=== PATIENT | female | born 1960 | race Caucasian/White ===

== ENCOUNTER → 2024-09-01 | Outpatient (CLI) | payer MEDICARE, MEDICAID, SELFPAY ==
[2024-09-01 13:24] LABS: Basophils # (Auto) 0.1 Thou/mm3 (0.0-0.2); Basophils % (Auto) 0 % (0-2.5); Eosinophils # (Auto) 0.3 Thou/mm3 (0.0-0.5); Eosinophils % (Auto) 2 % (0-10); Hematocrit 39.3 % (36.0-46.0); Hemoglobin 12.8 g/dL (12.0-16.0); Immature Granulocytes % (Auto) 0 % (0-0); Immature Granulocytes Auto 0.07 Thou/mm3 (0.00-0.00); Lymphocytes # (Auto) 3.7 Thou/mm3 (1.0-4.8); Lymphocytes % (Auto) 23 % (10-50); Mean Corpuscular HGB Conc 32.6 g/dl (31.0-37.0); Mean Corpuscular Hemoglobin 28.8 pg (25.0-35.0); Mean Corpuscular Volume 89 fL (80-100); Monocytes # (Auto) 1.8 Thou/mm3 (0.0-0.8); Monocytes % (Auto) 11 % (0-12); Neutrophils # (Auto) 10.3 Thou/mm3 (1.8-7.7); Neutrophils % (Auto) 64 % (37-80); Nucleated Red Blood Cell % 0 /100 WBC (0); Platelet Count 180 Thou/mm3 (140-440); RDW Standard Deviation 43.2 fL (36.4-46.3); Red Blood Count 4.44 Miln/mm3 (4.00-5.20); White Blood Count 16.2 Thou/mm3 (3.6-11.0)
[2024-09-01 15:35] LABS: Alanine Aminotransferase 8 U/L (10-49); Albumin, Serum 4.2 gm/dL (3.4-4.8); Albumin/Globulin Ratio 1.6 (1.2-2.2); Alkaline Phosphatase 62 U/L (46-116); Anion Gap 9 (7-16); Aspartate Amino Transferase 16 U/L (0-34); BUN/Creatinine Ratio 19 Ratio (12-20); Bilirubin,Direct 0.2 mg/dL (0.0-0.3); Bilirubin,Total 0.6 mg/dL (0.3-1.2); Blood Urea Nitrogen 19 mg/dL (9-23); Calcium 9.9 mg/dL (8.3-10.6); Calcium (Corrected) 9.9 mg/dL (8.5-10.1); Carbon Dioxide 29.6 mMol/L (20.0-31.0); Cardiac Risk Estimate 3.2 RATIO (3.7-5.6); Chloride 100 mMol/L (98-107); Cholesterol 165 mg/dL (132-200); Free T3 2.7 pg/mL (2.3-4.2); Free T4 (Free Thyroxine) 1.04 ng/dL (0.89-1.76); Globulin 2.6 gm/dL (2.3-3.5); Glucose 85 mg/dL (74-106); HDL Cholesterol 51 mg/dL (40-60); LDL Cholesterol,Calculated 88 mg/dL (0-130); Osmolality,Calculated 278 (275-295); Sodium 139 mMol/L (136-145); Thyroid Stimulating Hormone 1.67 uIU/mL (0.55-4.78); Total Protein 6.8 gm/dL (5.7-8.2); Triglycerides 131 mg/dL (30-150); eGFR > 60 See Note
[2024-09-01 15:45] LABS: Vitamin B12 623 pg/mL (211-911); Vitamin D 25 Hydroxy Total 45.9 ng/mL (7.3-40.2)
[2024-09-13 07:08] LABS: Valporic Acid (Depak)* 46.1 mg/L (50.0-100.0)
== END | disposition home or self-care (01) ==
LOC: SLDO 13:02
PROVIDERS: Referring Provider Family Medicine; Visit Provider Family Medicine
DX: F79 Unspecified intellectual disabilities (principal)
CPT/HCPCS: 36415; 80053; 80061; 80076; 80164; 82306; 82607; 84439; 84443; 84481; 85025

== ENCOUNTER → 2025-01-02 | Outpatient (CLI) | payer MEDICARE, MEDICAID, SELFPAY ==
--- NOTE | 2025-01-02 13:35 | XR_ITS ---
Examination: Bone densitometry Date and time of exam:January 02, 2025 1336 hours INDICATIONS: Post menopausal Technique: Lumbar spine and hip total bone mineralization values of an calculated. Peak reference and age match control results have been displayed. Findings: Lumbar spine total bone mineralization is1.219 gm/cm2. This is 1.6 standard deviations above peak reference. This is 3.4 standard deviations above age-matched controls. Hip total bone mineralization is 0.845 gm/cm2 This is 0.8 standard deviations below peak reference. This is 0.5 standard deviations above age-matched controls Impression: There is normal mineralization based on lumbar spine measurements. There is osteopenia based on hip measurements Lumbar mineralization is increase 7.3% compared with April 25, 2019 Hip mineralization is increase 13.3% compared with April 25, 2019
== END | disposition home or self-care (01) ==
LOC: CDIM 13:05
PROVIDERS: PCP Family Medicine; Referring Provider Family Medicine; Visit Provider Family Medicine
DX: M85.88 Other specified disorders of bone density and structure, other site (principal)
CPT/HCPCS: 77080

== ENCOUNTER → 2025-04-04 | Outpatient (CLI) | payer MEDICARE, MEDICAID, SELFPAY ==
[2025-04-04 16:37] LABS: Basophils # (Auto) 0.1 Thou/mm3 (0.0-0.2); Basophils % (Auto) 1 % (0-2.5); Eosinophils # (Auto) 0.3 Thou/mm3 (0.0-0.5); Eosinophils % (Auto) 3 % (0-10); Hematocrit 39.2 % (36.0-46.0); Hemoglobin 12.5 g/dL (12.0-16.0); Immature Granulocytes % (Auto) 1 % (0-0); Immature Granulocytes Auto 0.06 Thou/mm3 (0.00-0.00); Lymphocytes # (Auto) 3.2 Thou/mm3 (1.0-4.8); Lymphocytes % (Auto) 33 % (10-50); Mean Corpuscular HGB Conc 31.9 g/dl (31.0-37.0); Mean Corpuscular Hemoglobin 28.6 pg (25.0-35.0); Mean Corpuscular Volume 90 fL (80-100); Monocytes # (Auto) 1.1 Thou/mm3 (0.0-0.8); Monocytes % (Auto) 11 % (0-12); Neutrophils # (Auto) 5.1 Thou/mm3 (1.8-7.7); Neutrophils % (Auto) 52 % (37-80); Nucleated Red Blood Cell % 0 /100 WBC (0); Platelet Count 190 Thou/mm3 (140-440); RDW Standard Deviation 46.8 fL (36.4-46.3); Red Blood Count 4.37 Miln/mm3 (4.00-5.20); White Blood Count 9.9 Thou/mm3 (3.6-11.0)
[2025-04-04 16:54] LABS: Alanine Aminotransferase 13 U/L (10-49); Albumin, Serum 3.8 gm/dL (3.4-4.8); Albumin/Globulin Ratio 1.7 (1.2-2.2); Alkaline Phosphatase 56 U/L (46-116); Anion Gap 12 (7-16); Aspartate Amino Transferase 19 U/L (0-34); BUN/Creatinine Ratio 21 Ratio (12-20); Bilirubin,Total 0.2 mg/dL (0.3-1.2); Blood Urea Nitrogen 19 mg/dL (9-23); Calcium 9.3 mg/dL (8.3-10.6); Calcium (Corrected) 9.5 mg/dL (8.5-10.1); Carbon Dioxide 27.5 mMol/L (20.0-31.0); Chloride 105 mMol/L (98-107); Cholesterol 169 mg/dL (132-200); Creatinine (Component) 0.9 mg/dL (0.6-1.3); Globulin 2.3 gm/dL (2.3-3.5); Glucose 154 mg/dL (74-106); HDL Cholesterol 42 mg/dL (40-60); LDL Cholesterol,Calculated 89 mg/dL (0-130); Osmolality,Calculated 292 (275-295); Potassium 4.8 mMol/L (3.4-5.1); Sodium 144 mMol/L (136-145); Thyroid Stimulating Hormone 1.16 uIU/mL (0.55-4.78); Total Protein 6.1 gm/dL (5.7-8.2); Triglycerides 188 mg/dL (30-150); eGFR > 60 See Note
[2025-04-04 16:55] LABS: Vitamin D 25 Hydroxy Total 45.4 ng/mL (7.3-40.2)
[2025-04-04 17:07] LABS: Glucose Estimated Average 114 mg/dL (80-131); Hemoglobin A1C 5.6 % Hgb (4.8-6.0)
[2025-04-11 06:47] LABS: Valporic Acid (Depak)* 21.5 mg/L (50.0-100.0)
== END | disposition home or self-care (01) ==
LOC: SLDO 15:43
PROVIDERS: PCP Family Medicine; Referring Provider Family Medicine; Visit Provider Family Medicine
DX: F79 Unspecified intellectual disabilities (principal)
CPT/HCPCS: 36415; 80053; 80061; 80164; 82306; 83036; 84443; 85025

== ENCOUNTER 2025-04-06 14:34 | Inpatient (IN) | payer MEDICARE, MEDICAID, SELFPAY ==
[2025-04-06 14:49] VITALS: BP 112/67; PULSE 95; RESP 20; TEMP 36.1; O2SAT 96
--- NOTE | 2025-04-06 15:01 | XR_ITS ---
Examination: CT abdomen and pelvis without contrast. Coronal 3-D reconstructions. Sagittal 2-D reconstructions. Date and time of exam:April 06, 2025 1600 hours Comparison November 10, 2021. CTDI: vol (mGy): 6.27 DLP: (mGycm): 335 Technique: Axial images of the abdomen have been obtained, 3 mm slice thickness Intravenous contrast material has not been administered. Low dose protocols were performed. One or more of the following dose reduction techniques were used; automated exposure control, adjustment of the mA and/or KV according to patient size, use of iterative reconstruction technique. Findings: Small bilateral pleural effusions Large retrocardiac gastric hernia No focal liver or splenic lesion No gallstones No pancreatic or adrenal mass No renal or ureteral calculi, no hydronephrosis Multiple fluid distended small bowel loops in the mid and left abdomen No pericecal inflammatory change No diverticulitis Atrophic uterus No pelvic mass Contracted urinary bladder with wall thickening up to 6 mm Diffuse mild to moderate lumbar degenerative disc disease IMPRESSION: Findings suspicious for early small bowel obstruction, consider Gastrografin small bowel series follow-up
--- NOTE | 2025-04-06 15:02 | PD.EDRME ---
Rapid Medical Screening Exam RME Arrival date/time: 04/06/25 14:34 64-year-old female with a history of hypertension, megacolon, developmentally delayed, presents to the emergency room with a chief complaint of abdominal pain, distention, vomiting x 2 days I have greeted and performed a focused initial assessment of this patient. A comprehensive ED assessment and evaluation of the patient, analysis of all test results, and completion of the medical decision making process will be conducted by additional ED providers. Chief Complaint: Nausea/Vomiting/Diarrhea Vital signs: Vital Signs Temperature 97.0 F 04/06/25 14:49 Pulse Rate 95 04/06/25 14:49 Respiratory Rate 20 04/06/25 14:49 Blood Pressure 112/67 04/06/25 14:49 Pulse Oximetry (%) 96 04/06/25 14:49 Oxygen Delivery Method Room Air 04/06/25 14:49 Vital signs reviewed by provider: Yes
--- NOTE | 2025-04-06 15:26 | PC.NURSE ---
pt developmentally delayed per care staff multiple staff needed to draw labs, pt refuses meds
[2025-04-06 15:59] LABS: Basophils # (Auto) 0.1 Thou/mm3 (0.0-0.2); Basophils % (Auto) 0 % (0-2.5); Eosinophils # (Auto) 0.1 Thou/mm3 (0.0-0.5); Eosinophils % (Auto) 1 % (0-10); Hematocrit 41.6 % (36.0-46.0); Hemoglobin 13.8 g/dL (12.0-16.0); Immature Granulocytes Auto 0.09 Thou/mm3 (0.00-0.00); Lymphocytes # (Auto) 1.4 Thou/mm3 (1.0-4.8); Lymphocytes % (Auto) 11 % (10-50); Mean Corpuscular HGB Conc 33.2 g/dl (31.0-37.0); Mean Corpuscular Hemoglobin 28.2 pg (25.0-35.0); Mean Corpuscular Volume 85 fL (80-100); Monocytes # (Auto) 0.7 Thou/mm3 (0.0-0.8); Monocytes % (Auto) 6 % (0-12); Neutrophils # (Auto) 9.9 Thou/mm3 (1.8-7.7); Neutrophils % (Auto) 81 % (37-80); Nucleated Red Blood Cell # 0.00 Thou/mm3 (0.00-0.00); Nucleated Red Blood Cell % 0 /100 WBC (0); Platelet Count 241 Thou/mm3 (140-440); RDW Standard Deviation 43.3 fL (36.4-46.3); Red Blood Count 4.89 Miln/mm3 (4.00-5.20); White Blood Count 12.2 Thou/mm3 (3.6-11.0)
[2025-04-06 16:19] LABS: Alanine Aminotransferase 12 U/L (10-49); Albumin, Serum 4.8 gm/dL (3.4-4.8); Albumin/Globulin Ratio 1.5 (1.2-2.2); Alkaline Phosphatase 60 U/L (46-116); Anion Gap 12 (7-16); Aspartate Amino Transferase 30 U/L (0-34); BUN/Creatinine Ratio 13 Ratio (12-20); Bilirubin,Total 0.5 mg/dL (0.3-1.2); Blood Urea Nitrogen 15 mg/dL (9-23); Calcium 10.3 mg/dL (8.3-10.6); Calcium (Corrected) 10.3 mg/dL (8.5-10.1); Carbon Dioxide 28.5 mMol/L (20.0-31.0); Chloride 100 mMol/L (98-107); Creatinine (Component) 1.2 mg/dL (0.6-1.3); Globulin 3.3 gm/dL (2.3-3.5); Glucose 158 mg/dL (74-106); Lipase 63 U/L (12-53); Osmolality,Calculated 283 (275-295); Potassium 4.6 mMol/L (3.4-5.1); Sodium 140 mMol/L (136-145); Total Protein 8.1 gm/dL (5.7-8.2); eGFR 50 See Note
--- NOTE | 2025-04-06 20:24 | EDNOTE_ITS ---
<Statement entered by Iliana Mcdonnell MD - 04/06/25 23:25> As co-signing physician, I was present and available for consult prn. I concur with the plan and care as documented by the midlevel provider. Nausea/Vomit./Diarrhea-RME/HPI General Chief complaint: Nausea/Vomiting/Diarrhea Stated complaint: Vomiting, abdominal pain Time Seen by Provider: 04/06/25 20:14 Arrival date/time: 04/06/25 14:34 RME / HPI RME / HPI Narrative: 64-year-old female with a history of hypertension, megacolon, developmentally delayed, presents to the emergency room with a chief complaint of abdominal pain, distention, vomiting x 2 days. Patient is nonverbal. No fever noted. In the triage. Patient was vomiting a lot. Last bowel movement was 5 days ago. Related Data Home Medications ?Medication ?Instructions ?Recorded ?Confirmed polyethylene glycol 3350 17 17 gm PO DAILY ##0 04/24/0 9 11/11/21 gram/dose oral powder (Miralax) acetaminophen 325 mg tablet 650 mg PO Q6H PRN Pain 10/2811/11/21 (Tylenol) sennosides 8.6 mg tablet (senna) 2 tab PO HS 08/11/18 11/11/21 artificial tears(hypromellose) 0.3 1 drp ophthalmic (e ye) TID 10/10/19 11/11/21 % eye drops calcium 600 mg (as 1 tab PO BID 10/10/19 carbonate)-vitamin D3 10 mcg (400 unit) tablet diphenhydramine HCl 50 mg capsule 50 mg PO HS 10/10/19 11/11/21 omeprazole 20 mg capsule,delayed 20 mg PO HS 08/28/20 11/11/21 release furosemide 20 mg tablet 20 mg PO QDAY 11/11/2111/11 Held on 11/16/21. Instructions: Resume on 11/23/21. losartan 25 mg tablet 25 mg PO HS 11/11/21 2 melatonin 10 mg tablet 10 mg PO HS 11/11/21 2 lbguehpbnelp-xvgpcfkk-xtgesb tablet 1 tab PO QDAY 11/0111/11/21 quetiapine 100 mg tablet 100 mg PO QDAY 11/11/2111/01 quetiapine 200 mg tablet,extended 200 mg PO HS 2 11/11/21 release 24 hr quetiapine 25 mg tablet 25 mg PO QDAY 11/11/2111/11 valproic acid (as sodium salt) 250 1,500 mg PO HS 11/0111/11/21 mg/5 mL oral solution valproic acid (as sodium salt) 250 500 mg PO QAM 11/1111/11/21 mg/5 mL oral solution Previous Rx's ?Medication ?Instructions ?Recorded amoxicillin 875 mg-potassium 1 tab PO BID #5 tabs 04/01 clavulanate 125 mg tablet doxycycline hyclate 100 mg tablet 100 mg PO BID #5 tab s 11/16/21 Allergies Allergy/AdvReac Type Severity Reaction Status Date / Time sulfamethoxazole Allergy Unknown UNKNOWN Verified 04/06/25 14:38 TYPE RXN trimethoprim Allergy Unknown UNKNOWN Verified 04/06/25 14:38 TYPE RXN Review of Systems Review of Systems Narrative Review of Systems: Review of system reviewed and within normal limits except mentioned in HPI ED Exam Narrative Physical exam: VITAL SIGNS: Reviewed. GENERAL APPEARANCE: Alert and good eye contact nonverbal does not follows commands, no acute distress, HEAD AND FACE: Non-traumatic. ENT: PERRL, pink conjunctivitis, eyelid no trauma, Mucous membrane moist. NECK: Supple, nontender, no nuchal rigidity. CHEST: No tenderness, no crepitus, no paradoxical movement, no retractions. LUNGS: Clear, well ventilated, symmetric, no rales, no wheezing, no ronchi, no stridor, good breath sounds bilaterally. HEART: Regular rate, regular rhythm, no murmur, no gallops. ABDOMEN: Soft, hyperactive bowel sounds, distended, no guarding, diffuse tenderness on palpation, no rebound, no masses, RECTAL: Deferred. GENITAL: Deferred. NEUROLOGICAL: Gross motor function intact sensory function intact, Appropriate for age. MUSCULOSKELETAL: low back nontender, full range of motion. EXTREMITIES: Nontender, full range of motion. SKIN: Color pink, dry, no rash, no lacerations, no abrasions, no contusions. LYMPHATICS: Deferred. Course Quality Measures none Orders Category Date Time Status COVID-19 Screening Questionnaire NOW Care 04/06/25 21:21 Active Decision to Admit X1 Care 04/06/25 21:21 Completed NG / OG Tube to LIS NOW Care 04/06/25 20:[address] abdomen pelvis wo con Stat Exams 04/06/25 15:01 Completed CBC Stat Lab 04/06/25 15:47 Completed CMP [Comprehensive Metabolic Panel] Stat Lab 04/06/25 15:47 Completed Lipase Stat Lab 04/06/25 15:47 Completed UA [Urinalysis] Stat Lab 04/06/25 21:08 Completed Urine Culture Stat Lab 04/06/25 21:08 Received LORazepam [Ativan Inj] Med 04/06/25 21:14 Discontinued 1 mg IVP X1 ONE Ondansetron Inj [Zofran Inj] Med 04/06/25 20:27 Discontinued 4 mg IVP X1 ONE Ondansetron Odt [Zofran Odt] Med 04/06/25 15:01 Discontinued 4 mg PO X1 ONE Sodium Chloride 0.9% 1000 ml [Ns] 1,000 ml Med 04/06/25 20:28 Discontinued IV 999 mls/hr Vital Signs Vital signs: Vital Signs Temperature 97.0 F 04/06/25 14:49 Pulse Rate 95 04/06/25 14:49 Respiratory Rate 20 04/06/25 14:49 Blood Pressure 112/67 04/06/25 14:49 Pulse Oximetry (%) 96 04/06/25 14:49 Oxygen Delivery Method Room Air 04/06/25 14:49 Nausea/Vomiting/Diarrhea MDM Narrative MDM Narrative:: 64-year-old female with a history of hypertension, megacolon, developmentally delayed, presents to the emergency room with a chief complaint of abdominal pain, distention, vomiting x 2 days. Patient is nonverbal. No fever noted. In the triage. Patient was vomiting a lot. Last bowel movement was [address] scan of the abdomen showed small bowel obstruction. Otherwise unremarkable. Patient's workup is significant for slight leukocytosis 12.2 urinalysis contaminated. Patient received IV fluids, Ativan IV, and NG tube ordered. 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 Social determinants that could affect healthcare access:: none Patient has the following chronic illnesses:: Mental retardation How is presenting disease/condition affected by chronic disease/condition?: exacerbated by Evaluation data The following diagnostics were reviewed and interpreted by me:: lab results and radiology exam(s) Lab and/or radiology exams considered but not ordered:: None Interpretation Summary: See results in [facility] Medications / Prescriptions Medications / Prescriptions considered but not ordered:: Plan Medication administrations:: Medication Administration History Acetaminophen (Acetaminophen 325 Mg Tablet) 650 mg PO Q6H PRN PRN Reason: Fever >100.4 Stop: 05/06/25 21:41 Acetaminophen (Acetaminophen 325 Mg Tablet) 650 mg PO Q6H PRN PRN Reason: PAIN SCALE 1-3 (mild Stop: 05/06/25 21:41 Ciprofloxacin (Ciprofloxacin Op Nia 0.3% 5 Ml Btl) 0 drop BOTH EYES BID KALI Stop: 05/07/25 08:59 Escitalopram Oxalate (Escitalopram Oxalate 10 Mg Tablet) 10 mg PO QDAY KALI Stop: 05/07/25 19:59 Heparin Sodium (Porcine) (Heparin Sod Inj 5000 Unit/Ml Vial) 5,000 unit SC Q12H KALI Stop: 04/20/25 21:44 Last Admin: 04/06/25 22:18 Dose: 5,000 unit Documented By: GUILHERME Co-signed By: ASHANTI Hydromorphone HCl (Hydromorphone Inj 2 Mg/Ml Vial) 1 mg IVP Q4H PRN PRN Reason: PAIN Stop: 04/11/25 21:41 Sodium Chloride (Ns) 1,000 mls @ 100 mls/hr IV .Q10H KALI Stop: 05/06/25 21:49 Last Admin: 04/06/25 22:18 Dose: 100 mls/hr Documented By: GUILHERME Ceftriaxone Sodium/Dextrose (Rocephin/D5w 1gm Iv Premix) 1 gm in 50 mls @ 100 mls/hr IV QDAY [facility] Stop: 04/13/25 21:57 Last Infusion: 04/06/25 22:58 Dose: Infused Documented By: Admin: 04/06/25 22:18 Dose: 100 mls/hr Documented By: GUILHERME Ondansetron HCl (Ondansetron Inj 2 Mg/Ml Inj 2 Ml) 4 mg IVP Q6H PRN; Protocol PRN Reason: NAUSEA OR VOMITING Stop: 05/06/25 21:41 Pantoprazole Sodium (Pantoprazole Inj 40 Mg Vial) 40 mg IVP QDAY [facility] Stop: 05/07/25 08:59 Valproic Acid (Valproic Acid Syrup 250 Mg/5 Ml Udc) 250 mg PO HS KALI Stop: 05/07/25 20:59 Discontinued Medications Diphenhydramine HCl (Diphenhydramine Inj 50 Mg/Ml Vial) 12.5 mg IVP X1 ONE Stop: 04/06/25 21:48 Last Admin: 04/06/25 22:16 Dose: 12.5 mg Documented By: GUILHERME Diphenhydramine HCl (Diphenhydramine Inj 50 Mg/Ml Vial) 12.5 mg IVP X1 ONE Stop: 04/06/25 23:06 Sodium Chloride (Ns) 1,000 mls @ 999 mls/hr IV .Q1H1M ONE Stop: 04/06/25 21:28 Last Infusion: 04/06/25 22:25 Dose: Infused Documented By: Admin: 04/06/25 21:17 Dose: 999 mls/hr Documented By: GUILHERME Sodium Chloride (Ns) 1,000 mls @ 75 mls/hr IV .[id number] KALI Stop: 05/06/25 21:44 Last Admin: 04/06/25 22:58 Dose: Not Given Documented By: GUILHERME Non-Admin Reason: Cancelled by Provider Lorazepam (Lorazepam 2 Mg/Ml Vial) 1 mg IVP X1 ONE Stop: 04/06/25 21:15 Last Admin: 04/06/25 22:17 Dose: 1 mg Documented By: GUILHERME Ondansetron HCl (Ondansetron Odt 4 Mg Tabrap) 4 mg PO X1 ONE; Protocol Stop: 04/06/25 15:02 Last Admin: 04/06/25 16:09 Dose: Not Given Documented By: RAJAT Non-Admin Reason: Change of Condition Ondansetron HCl (Ondansetron Inj 2 Mg/Ml Inj 2 Ml) 4 mg IVP X1 ONE; Protocol Stop: 04/06/25 20:28 Last Admin: 04/06/25 21:16 Dose: 4 mg Documented By: GUILHERME IV fluids, Ativan Zofran Consultations Consultation(s) initiated? (list below): No Diagnosis Nausea Differential Diagnosis: gastroenteritis, drug-induced nausea and vomiting and dehydration Most likely diagnosis given after review of the tests above:: Small bowel obstruction Admission Indicated Admission indicated?: indicated Admission Request Was there a request for admission?: Yes Admission Attestation Admission request attestation: Discussed case with [Dr. Costa] from Hospitalist service regarding admission. Discussed patients ED course, exam findings, labs, and radiology results. The Hospitalist [agrees] to accept the patient for admission. Disposition Plan Disposition Plan: Admit Discharge Plan Plan Patient Disposition: Admit Acute Care w/in Hospital Problem List Clinical Impression: Small bowel obstruction
[2025-04-06] MEDS: ONDANSETRON INJ 2 MG/ML INJ 2 ML 4 MG IVP (21:16)
[2025-04-06 21:17] VITALS: BP 151/69; PULSE 95; RESP 18; TEMP 36.8; O2SAT 98
[2025-04-06] MEDS: SODIUM CHLORIDE 0.9% 1000 ML 1,000 ML 999 ML IV (21:17)
[2025-04-06 21:26] LABS: Collection Type, Urine Clean Catch
[2025-04-06 21:49] LABS: Bilirubin,Urine 1+ (Negative); Blood,Urine Negative (Negative); Clarity,Urine Turbid (Clear/Hazy); Color,Urine Yellow (Lt Yel-Yel); Glucose, Urine Negative (Negative); Hyaline Casts,Urine 1 /hpf (0-1); Ketones,Urine 1+ (Negative); Leukocyte Esterase,Urine Positive (Negative); Nitrite,Urine Negative (Negative); PH,Urine 5.5 (5.0-7.0); Protein,Urine 1+ (Neg - Trace); RBC,Urine 17 /hpf (0-3); Specific Gravity,Urine 1.027 (1.001-1.035); Squamous Epithelial Cell,Urine 22 /hpf (0-5); Urobilinogen,Urine 2.0 mg/dL (0.0-1.0); WBC,Urine 15 /hpf (0-5)
--- NOTE | 2025-04-06 22:00 | PD.RESHP ---
Documentation for date of: 04/06/25 [facility] History of Present Illness Chief complaint: Nausea vomiting abdominal pain History of present illness: This patient is a 64-year-old female with past medical history of moderate intellectual disability, sleep apnea, microcephaly, bipolar disorder, depression, history of megacolon, constipation, osteopenia, allergic rhinitis, hiatal hernia, thrombocytopenia, chronic dermatitis, bilateral lower extremity edema, hearing difficulty, vision impairment presented to the ED with caregiver from [facility] with chief complaint of vomiting and abdominal pain. Patient is nonverbal and caregiver Aditi reported that patient has been having grimacing facial expression and pain in the abdomen from last 5 days started on Wednesday. This morning, patient had an episode of vomiting and pain got worse in the abdomen more in the center after which they brought her to the ER. Vomiting consisted of digested food particles without blood. In the triage, patient had multiple episodes of vomiting. Patient did not had a bowel movement from last 5 days. No passage of flatus. She refused her medications as well. Patient is ambulatory at baseline. Caregiver denied noticing any fever, shortness of breath, chest pain or any other complaints. She did not notice that patient had pain during urination. Patient follows up with Dr. Guan as outpatient. In the ED, patient was slightly hypertensive blood pressure 151/69, heart rate 95, respiratory rate 18 and afebrile. She was saturating well on room air. Labs revealed mild leukocytosis white count 12.2, hemoglobin stable at 13.8. Kidney functions unremarkable. Platelets 241. Electrolyte panel unremarkable with sodium 140, potassium 4.6, chloride 100. BUN 15 and creatinine 1.2 slightly elevated from baseline 0.9 from 04/04/2025. Blood glucose 158. Hypercalcemia calcium 10.3. Lipase was mildly elevated 63. UA was turbid with proteinuria, ketones, bilirubin, RBC 17, WBC 15 and squamous epithelial cells 22. CT abdomen revealed small bilateral pleural effusions, large retrocardiac gastric hernia. Multiple fluid distended small bowel loops in the mid and left abdomen suspicious for SBO. Contracted urinary bladder.In the ED, patient received Zofran 4 mg IV x 1, Ativan 1 mg IV x 1, diphenhydramine 25 mg x 1, 1 L of NS x 1. Emergency person to contact: Luiza Marie [phone] Past medical history as above Past surgical history not significant Allergies: Bactrim unknown reaction Home medications: Polyethylene glycol, calcium carbonate, certavite, senna, omeprazole, artificial tears eyedrops, furosemide 20 mg, losartan 25 mg once daily, escitalopram 10 mg once daily, Prolia every 6 months, ciprofloxacin 0.3% eyedrops twice daily, valproic acid to 50 mg at night, acetaminophen as needed for pain Patient is admitted for further workup and management of possible small bowel obstruction. Review of Systems Review of Systems Systems Reviewed: All systems reviewed, normal except as documented Past Medical History Past Medical History NEUROLOGIC: Positive Neurological Disorders (developmental delay) CARDIAC: Positive Hypertension RESPIRATORY: Positive Pneumonia and Sleep Apnea GASTROINTESTINAL: Positive Gastrointestinal Disorders and Hiatal Hernia MUSCULOSKELETAL: Positive Musculoskeletal Disorders and Osteoporosis ENT: Positive Blind ENDOCRINE: Positive Endocrine Disorders and Hypothyroidism PSYCHO/SOCIAL: Positive Bipolar Disorder, Depression and Behavior Problems OTHER HISTORY: Positive Developmental Delay and Falls Surgical History SURGICAL: Positive Eye Surgery Social History SMOKING STATUS: Never smoker SUBSTANCE USE: does not use ALCOHOL: Never Travel History EBOLA RISK: No Exam Vital Signs Temp Pulse Resp BP Pulse Ox O2 Del Method 98.2 F 95 18 151/69 H 98 Room Air 04/06/25 21:17 04/06/25 21:17 04/06/25 21:17 04/06/25 21:17 04/06/25 21:17 04/06/25 21:17 Narrative Exam Limited examination as patient did not allowed putting stethoscope on her chest and was biting and kicking. GENERAL APPEARANCE: Developmentally delayed mildly agitated and not cooperative for examination. HEENT: NC, AT. Dry mucous membrane. Microcephaly, right eye closed, oropharynx clear. NECK: Supple without lymphadenopathy. No stiffness or restricted ROM. HEART: Regular rate and regular rhythm, normal S1/S2, no m/r/g LUNGS: CTAB, moving air well. No crackles or wheezes are heard. ABDOMEN: Soft, epigastric and lower abdomen tenderness mildly distended. Due to limited examination cannot appreciate bowel sounds. BACK: No CVAT, no obvious deformity. EXTREMITIES: Without cyanosis, clubbing or edema. NEUROLOGICAL: Grossly nonfocal. Developmentally delayed, alert and oriented, moving all 4 extremities. CN not formally tested but appear grossly intact. Observed to ambulate with normal gait. Skin: Warm and dry without any rash. Psych: Patient is anxious developmentally delayed Results: Labs 04/06/25 15:47 04/06/25 15:47 Labs: Short CBC 04/06/25 Range/Units 15:47 WBC 12.2 H (3.6-11.0) Thou/mm3 Hgb 13.8 (12.0-16.0) g/dL Hct 41.6 (36.0-46.0) % Plt Count 241 D (140-440) Thou/mm3 BMP 04/06/25 15:47 Sodium 140 Potassium 4.6 Chloride 100 Carbon Dioxide 28.5 BUN 15 Creatinine 1.2 Glucose 158 H Calcium 10.3 Liver Function 04/06/25 Range/Units 15:47 Total Bilirubin 0.5 (0.3-1.2) mg/dL AST 30 (0-34) U/L ALT 12 (10-49) U/L Alkaline Phosphatase 60 (46-116) U/L Albumin 4.8 D (3.4-4.8) gm/dL Urine 04/06/25 Range/Units 21:08 Urine Color Yellow (Lt Yel-Yel) Urine Clarity Turbid A (Clear/Hazy) Urine pH 5.5 (5.0-7.0) Ur Specific [place] 1.027 (1.001-1.035) Urine Protein 1+ A (Neg - Trace) Urine Glucose (UA) Negative (Negative) Quality Measures Quality Measures VTE prophylaxis (Heparin subcut) Advance care planning discussed with:: other Medications Home Medications and Allergies Home Medications ?Medication ?Instructions ?Recorded ?Confirmed ?Type polyethylene glycol 3350 17 17 g PO HS ##0 04/24/09 04/07/25 History gram/dose oral powder (Miralax) acetaminophen 325 mg tablet 650 mg PO Q6H PRN Pain and/or 08/11/18 04/07/25 History (Tylenol) T>100.5 sennosides 8.6 mg tablet (senna) 2 tab PO HS 08/11/18 11/11/21 History artificial tears(hypromellose) 0.3 1 drp ophthalmic (eye) TID 10/10/19 11/11/21 History % eye drops calcium 600 mg (as 1 tab PO BID 10/10/19 11/11/21 History carbonate)-vitamin D3 10 mcg (400 unit) tablet diphenhydramine HCl 50 mg capsule 50 mg PO HS 10/10/19 11/11/21 History omeprazole 20 mg capsule,delayed 20 mg PO HS 08/28/20 11/11/21 History release furosemide 20 mg tablet 20 mg PO QDAY 11/11/21 11/11/21 History Held on 11/16/21. Instructions: Resume on 11/23/21. losartan 25 mg tablet 25 mg PO HS 11/11/21 11/11/21 History melatonin 10 mg tablet 10 mg PO HS 11/11/21 11/11/21 History yahiqzdiccjk-lllemalu-ylrwoy tablet 1 tab PO QDAY 11/11/21 11/11/21 History quetiapine 100 mg tablet 100 mg PO QDAY 11/11/21 11/11/21 History quetiapine 200 mg tablet,extended 200 mg PO HS 11/11/21 11/11/21 History release 24 hr quetiapine 25 mg tablet 25 mg PO QDAY 11/11/21 11/11/21 History valproic acid (as sodium salt) 250 1,500 mg PO HS 11/11/21 11/11/21 History mg/5 mL oral solution valproic acid (as sodium salt) 250 500 mg PO QA 11/11/21 11/11/21 History mg/5 mL oral solution ciprofloxacin HCl 0.3 % eye drops 1 drp ophthalmic (eye) BID 04/07/25 04/07/25 History divalproex 250 mg tablet,delayed 250 mg PO HS 04/07/25 04/07/25 History release Allergies Allergy/AdvReac Type Severity Reaction Status Date / Time sulfamethoxazole Allergy Unknown UNKNOWN Verified 04/06/25 14:38 TYPE RXN trimethoprim Allergy Unknown UNKNOWN Verified 04/06/25 14:38 TYPE RXN Visit Medications Acetaminophen (Acetaminophen 325 Mg Tablet) 650 mg PO Q6H PRN PRN Reason: Fever >100.4 Stop: 05/06/25 21:41 Acetaminophen (Acetaminophen 325 Mg Tablet) 650 mg PO Q6H PRN PRN Reason: PAIN SCALE 1-3 (mild Stop: 05/06/25 21:41 Ciprofloxacin (Ciprofloxacin Op Nia 0.3% 5 Ml Btl) 0 drop BOTH EYES BID [facility] Stop: 05/07/25 08:59 Escitalopram Oxalate (Escitalopram Oxalate 10 Mg Tablet) 10 mg PO QDAY KALI Stop: 05/07/25 19:59 Heparin Sodium (Porcine) (Heparin Sod Inj 5000 Unit/Ml Vial) 5,000 unit SC Q12H KALI Stop: 04/20/25 21:44 Hydromorphone HCl (Hydromorphone Inj 2 Mg/Ml Vial) 1 mg IVP Q4H PRN PRN Reason: PAIN Stop: 04/11/25 21:41 Sodium Chloride (Ns) 1,000 mls @ 100 mls/hr IV .Q10H KALI Stop: 05/06/25 21:49 Ceftriaxone Sodium/Dextrose (Rocephin/D5w 1gm Iv Premix) 1 gm in 50 mls @ 100 mls/hr IV QDAY KALI Stop: 04/13/25 21:57 Ondansetron HCl (Ondansetron Inj 2 Mg/Ml Inj 2 Ml) 4 mg IVP Q6H PRN; Protocol PRN Reason: NAUSEA OR VOMITING Stop: 05/06/25 21:41 Pantoprazole Sodium (Pantoprazole Inj 40 Mg Vial) 40 mg IVP QDAY KALI Stop: 05/07/25 08:59 Valproic Acid (Valproic Acid Syrup 250 Mg/5 Ml Udc) 250 mg PO HS KALI Stop: 05/07/25 20:59 Discontinued Medications Diphenhydramine HCl (Diphenhydramine Inj 50 Mg/Ml Vial) 12.5 mg IVP X1 ONE Stop: 04/06/25 21:48 Sodium Chloride (Ns) 1,000 mls @ 999 mls/hr IV .Q1H1M ONE Stop: 04/06/25 21:28 Last Admin: 04/06/25 21:17 Dose: 999 mls/hr Sodium Chloride (Ns) 1,000 mls @ 75 mls/hr IV .[id number] KALI Stop: 05/06/25 21:44 Lorazepam (Lorazepam 2 Mg/Ml Vial) 1 mg IVP X1 ONE Stop: 04/06/25 21:15 Ondansetron HCl (Ondansetron Odt 4 Mg Tabrap) 4 mg PO X1 ONE; Protocol Stop: 04/06/25 15:02 Last Admin: 04/06/25 16:09 Dose: Not Given Ondansetron HCl (Ondansetron Inj 2 Mg/Ml Inj 2 Ml) 4 mg IVP X1 ONE; Protocol Stop: 04/06/25 20:28 Last Admin: 04/06/25 21:16 Dose: 4 mg Assessment & Plan Plan This patient is a 64-year-old female with past medical history of moderate intellectual disability, sleep apnea, microcephaly, bipolar disorder, depression, history of megacolon, constipation, osteopenia, allergic rhinitis, hiatal hernia, thrombocytopenia, chronic dermatitis, bilateral lower extremity edema, hearing difficulty, vision impairment presented to the ED with caregiver from [facility] [[facility]] with chief complaint of vomiting and abdominal pain. Patient is nonverbal and caregiver Aditi reported that patient has been having grimacing facial expression and pain in the abdomen from last 5 days and intractable vomiting x 1. No bowel movement x [address] was significant for SBO. Admitted for management of SBO. Emergency person to contact: Luiza Frank [phone] #Small bowel obstruction #History of hiatal hernia and megacolon #History of constipation ?Patient has a history of chronic constipation. Caregiver reported the patient did not had a bowel movement from last 5 days and has been having abdominal pain and vomiting x 5 days ago. Denies any fever or chills. ? In the ED, patient was slightly hypertensive, had regular pulse, afebrile and saturating well on room air. CT abdomen was significant for dilated small bowel loops with gastric hernia suspicious for SBO. ? Labs were significant for mild leukocytosis likely reactive. ?.In the ED, patient received Zofran 4 mg IV x 1, Ativan 1 mg IV x 1, diphenhydramine 25 mg x 1, 1 L of NS x 1. Plan: ? NG tube with low intermittent suctioning ? IV Benadryl 25 mg given x 1 to relieve anxiety ? IV fluids normal saline at 100 cc/h ? Consulted general surgery, Dr Benites appreciate recommendations ? Will likely start Gastrografin series tomorrow morning once patient's vomiting is settled and patient is more stable ? IV Dilaudid 1 mg every 4 as needed for severe pain ? N.p.o. for now ? Aspiration precautions #Mild RAYSHAWN #Hypercalcemia ? likely due to dehydration ?BUN 59 creatinine 1.2. GFR 50 baseline creatinine 0.8 from 04/04/2025 Calcium 10.3 Plan: ? IV fluid resuscitation ? Avoid nephrotoxic agents ? Renally dose medications ?Holding patient's Lasix ? Strict AUGUSTA's #Reactive leukocytosis -Likely related to dehydration ? White count 12.2 Plan: ? Started IV fluids at 100 cc/h #Asymptomatic pyuria #? UTI ?Patient is nonverbal at baseline. Caregiver did not report that she had any pain during urination. Urinalysis was turbid with proteinuria, ketones, bilirubin, pyuria, squamous epithelial cells and RBCs without bacteria. ?White count was elevated. No fevers reported. Plan: ? Started IV ceftriaxone 1 g daily ? Follow-up on urine culture #History of developmental delay #History of depression and bipolar disorder #History of hearing difficulty and vision impairment ?Patient is developmentally delayed and is on medications for depression. Plan: ? Resume home medications including valproic acid 250 mg at bedtime and citalopram 10 mg at bedtime tomorrow once patient's SBO resolved ?Resumed eyedrops ciprofloxacin twice daily #History of bilateral lower extremity edema #History of thrombocytopenia ?Patient is on Lasix 20 mg every day and losartan 25 mg every day Plan ? Holding home medications including Lasix and losartan as blood pressures within normal limits #History of osteopenia ?Patient takes Prolia once every 6 months Health maintenance Diet: N.p.o., NG tube with LIS GI prophylaxis: Protonix 40 mg IV daily DVT prophylaxis: Heparin 5000 IU subcut twice daily CODE STATUS: Full code per caregiver Disposition: Patient is admitted for further workup and management of SBO in the setting of underlying history of chronic constipation. Patient was seen and discussed with attending physician, Dr. Brody Deras MD, PGY 2 Attending Provider Attestation/Addendum 64-year-old female with moderate developmental delay, hearing and visual impairment, bipolar disorder, history of brought in because of vomiting, abdominal pain. Imaging showed small bowel obstruction. Patient has abnormal urinalysis, leukocytosis, thrombocytopenia, RAYSHAWN. Patient will be admitted for further management. Check electrolytes including magnesium and Phos. Provide adequate hydration. Patient has history of constipation further complicating her clinical condition. Discussed with housestaff.
[2025-04-06 22:01] VITALS: O2SAT 94
[2025-04-06] MEDS: LORazepam 2 MG/ML VIAL 1 MG IVP (22:17)
[2025-04-06] MEDS: HEPARIN SOD INJ 5000 UNIT/ML VIAL SC (22:18)
[2025-04-06] MEDS: cefTRIAXone/D5w 1gm IV premix 1 GM/50 ML BAG IV (22:18)
[2025-04-06] MEDS: SODIUM CHLORIDE 0.9% 1000 ML 1,000 ML 100 ML IV (22:18)
[2025-04-07] VITALS (11 sets, daily range): BP systolic 99–138; BP diastolic 61–83; PULSE 62–96; RESP 15–20; TEMP 36.3–36.9; O2SAT 90–98
[2025-04-07 00:31] LABS: Magnesium 1.7 mg/dL (1.6-2.6); Phosphorous 3.5 mg/dL (2.4-5.1)
[2025-04-07] MEDS: LORazepam 2 MG/ML VIAL 1 MG IVP (01:06)
--- NOTE | 2025-04-07 01:28 | PC.NURSE ---
85% O2 sat on room air- Applied O2 inh on at 2L/min/nc.
[2025-04-07] MEDS: Magnesium Sulfate 2 GM Ivpb 2 GM/50 ML BAG IV (01:40)
[2025-04-07] MEDS: GLYCERIN, ADULT 1 EA SUPP 1 EACH PR (02:33)
[2025-04-07 06:50] LABS: Basophils # (Auto) 0.0 Thou/mm3 (0.0-0.2); Basophils % (Auto) 0 % (0-2.5); Eosinophils # (Auto) 0.1 Thou/mm3 (0.0-0.5); Eosinophils % (Auto) 1 % (0-10); Hematocrit 38.2 % (36.0-46.0); Hemoglobin 12.6 g/dL (12.0-16.0); Immature Granulocytes Auto 0.05 Thou/mm3 (0.00-0.00); Lymphocytes # (Auto) 2.7 Thou/mm3 (1.0-4.8); Lymphocytes % (Auto) 23 % (10-50); Mean Corpuscular HGB Conc 33.0 g/dl (31.0-37.0); Mean Corpuscular Hemoglobin 28.4 pg (25.0-35.0); Mean Corpuscular Volume 86 fL (80-100); Monocytes # (Auto) 1.4 Thou/mm3 (0.0-0.8); Monocytes % (Auto) 11 % (0-12); Neutrophils # (Auto) 7.8 Thou/mm3 (1.8-7.7); Neutrophils % (Auto) 65 % (37-80); Nucleated Red Blood Cell # 0.00 Thou/mm3 (0.00-0.00); Nucleated Red Blood Cell % 0 /100 WBC (0); Platelet Count 243 Thou/mm3 (140-440); RDW Standard Deviation 44.4 fL (36.4-46.3); Red Blood Count 4.43 Miln/mm3 (4.00-5.20); White Blood Count 12.1 Thou/mm3 (3.6-11.0)
[2025-04-07 07:37] LABS: INR 1.0 (0.9-1.3); Partial Thromboplastin Time 27.6 Seconds (22.0-36.0); Prothrombin Time 10.7 Seconds (9.0-12.2)
[2025-04-07 07:54] LABS: Anion Gap 14 (7-16); BUN/Creatinine Ratio 13 Ratio (12-20); Blood Urea Nitrogen 13 mg/dL (9-23); Calcium 9.4 mg/dL (8.3-10.6); Carbon Dioxide 23.4 mMol/L (20.0-31.0); Chloride 105 mMol/L (98-107); Creatinine (Component) 1.0 mg/dL (0.6-1.3); Glucose 78 mg/dL (74-106); Magnesium 2.5 mg/dL (1.6-2.6); Osmolality,Calculated 282 (275-295); Phosphorous 2.9 mg/dL (2.4-5.1); Potassium 4.1 mMol/L (3.4-5.1); Sodium 142 mMol/L (136-145); eGFR > 60 See Note
[2025-04-07] MEDS: cefTRIAXone/D5w 1gm IV premix 1 GM/50 ML BAG IV (09:21)
[2025-04-07] MEDS: SODIUM CHLORIDE 0.9% 1000 ML 1,000 ML 100 ML IV ×2 (09:32→20:00)
[2025-04-07] MEDS: HEPARIN SOD INJ 5000 UNIT/ML VIAL SC ×2 (09:41→22:04)
--- NOTE | 2025-04-07 10:58 | PD.SURCONS ---
HPI Consult details Consult date: 04/07/25 Reason for consultation narrative: Small bowel obstruction History of present illness: Patient is nonverbal, history is obtained from medical record and patient's care provider. This is a 64-year-old female with multiple medical comorbidities as stated in history and physical by Dr. Deras was admitted with abdominal distention with nausea and vomiting. According care provider last bowel movement was few days ago. A CT scan was obtained that revealed fluid distended small bowel loops. Patient was admitted for further management. According to care provider patient has not had surgeries in the past Meds Home Medications and Allergies Home Medications ?Medication ?Instructions ?Recorded ?Confirmed ?Type polyethylene glycol 3350 17 17 g PO HS ##0 04/24/09 04/07/25 History gram/dose oral powder (Miralax) acetaminophen 325 mg tablet 650 mg PO Q6H PRN Pain and/or 08/11/18 04/07/25 History (Tylenol) T>100.5 sennosides 8.6 mg tablet (senna) 2 tab PO HS constipation 08/11/18 04/07/25 History artificial tears(hypromellose) 0.3 1 drp ophthalmic (eye) TID eye 10/10/19 04/07/25 History % eye drops infection calcium 600 mg (as 1 tab PO BID 10/10/19 04/07/25 History carbonate)-vitamin D3 10 mcg (400 unit) tablet diphenhydramine HCl 50 mg capsule 50 mg PO HS 10/10/19 04/07/25 History omeprazole 20 mg capsule,delayed 20 mg PO HS hiatal 08/28/20 04/07/25 History release hernia/abdominal distress furosemide 20 mg tablet 20 mg PO QDAY 11/11/21 04/07/25 History losartan 25 mg tablet 25 mg PO HS hypertension 11/11/21 04/07/25 History melatonin 10 mg tablet 10 mg PO HS 11/11/21 04/07/25 History irxgkaxugpoa-pgfqxohi-ywtqkd tablet 1 tab PO QDAY 11/11/21 04/07/25 History quetiapine 100 mg tablet 100 mg PO QDAY 11/11/21 04/07/25 History quetiapine 200 mg tablet,extended 200 mg PO HS 11/11/21 04/07/25 History release 24 hr quetiapine 25 mg tablet 25 mg PO QDAY 11/11/21 04/07/25 History valproic acid (as sodium salt) 250 1,500 mg PO HS 11/11/21 04/07/25 History mg/5 mL oral solution valproic acid (as sodium salt) 250 500 mg PO QAM 11/11/21 04/07/25 History mg/5 mL oral solution ciprofloxacin HCl 0.3 % eye drops 1 drp ophthalmic (eye) BID 04/07/25 04/07/25 History denosumab 60 mg/mL subcutaneous 60 mg subcut .q6 mon osteoporosis 04/07/25 04/07/25 History syringe (Prolia) divalproex 250 mg tablet,delayed 250 mg PO HS 04/07/25 04/07/25 History release escitalopram oxalate 10 mg tablet 10 mg PO HS behavior 04/07/25 04/07/25 History multivitamin-iron (hematinic) 1 tab PO HS supplement 04/07/25 04/07/25 History Allergies Allergy/AdvReac Type Severity Reaction Status Date / Time sulfamethoxazole Allergy Unknown UNKNOWN Verified 04/06/25 14:38 TYPE RXN trimethoprim Allergy Unknown UNKNOWN Verified 04/06/25 14:38 TYPE RXN Exam Vital Signs Temp Pulse Resp BP Pulse Ox O2 Del Method O2 Flow Rate 97.9 F 88 18 119/61 98 Nasal Cannula 1 04/07/25 08:00 04/07/25 08:00 04/07/25 08:00 04/07/25 08:00 04/07/25 08:00 04/07/25 08:00 04/07/25 08:00 Constitutional Constitutional: no acute distress Routine Abdominal Exam Comments: Abdomen is soft and mildly distended. She has tenderness to palpation throughout the abdomen, no rebound tenderness or peritonitis at this time. No obvious evidence of hernia Results Results: Laboratory Laboratory results: results reviewed Results: Imaging CT scan - abdomen: report reviewed and image reviewed CT scan - pelvis: report reviewed and image reviewed Assessment & Plan Additional Assessment Additional comments: Small bowel obstruction Plan Keep NPO. Will start with Dulcolax if no results she will require enema
[2025-04-07] MEDS: CIPROFLOXACIN OP SOL 0.3% 5 ML BTL BOTH EYES ×2 (11:01→22:04)
--- NOTE | 2025-04-07 16:08 | PD.RESPRO ---
Documentation for date of: 04/07/25 Subjective Subjective Interval history: Patient examined at bedside. Caregiver present as well. Has bilateral wrist restraints on, sleeping in no apparent distress. I spoke with personnel from [facility] who stated that patient is conserved by Dr. Bentley. She was given update about patient's plan. There was still difficulty in placing NG tube to start decompression for possible SBO. Surgery is not concerned for major SBO after reviewing images and also no vomiting. Expeciting resolution with laxatives. Will continue to monitor BM. RAYSHAWN resolved with Cr 1.0. Will continue fluids and NPO status. Exam Vital Signs Temp Pulse Resp BP Pulse Ox O2 Del Method O2 Flow Rate 97.9 F 62 18 125/78 91 L Nasal Cannula 1 04/07/25 12:00 04/07/25 12:00 04/07/25 12:00 04/07/25 12:04/07/25 12:00 04/07/25 08:00 04/07/25 08:00 Narrative Exam General: Developmentally delayed mildly agitated and not cooperative for examination. bL wrist restrains on. HEENT: right eye remains closed, unable to examine otherwise. Cardiovascular: Normal S1 and S2. Regular rate and rhythm. Respiratory: Lungs are clear to auscultation bilaterally. No wheezing or crackles heard. Abdomen: Soft, Due to limited examination cannot appreciate bowel sounds. Skin: Warm to touch, dry, no rashes noted Musculoskeletal: No gross injuries. Able to move all 4 extremities. No pitting edema Neuro: developmental delay, No apparent focal neuro deficits. Objective Labs 04/08/25 05:31 04/08/25 05:31 Labs: Laboratory Results - last 24 hr 04/06/25 04/06/25 04/06/25 15:47 21:08 23:53 WBC RBC Hgb Hct MCV MCH MCHC RDW Std Deviation Plt Count Neut % (Auto) Lymph % (Auto) [place] % (Auto) Eos % (Auto) Baso % (Auto) Neut # (Auto) Lymph # (Auto) [place] # (Auto) Eos # (Auto) Baso # (Auto) Immature Gran # (Auto) Absolute Nucleated RBC Immature Gran % Nucleated RBC % PT INR APTT Sodium 140 Potassium 4.6 Chloride 100 Carbon Dioxide 28.5 Anion Gap 12 BUN 15 Creatinine 1.2 Estim Creat Clear Calc Not Performed. eGFR 50 L BUN/Creatinine Ratio 13 Glucose 158 H Calculated Osmolality 283 Calcium 10.3 Corrected Calcium 10.3 H Phosphorus 3.5 Magnesium 1.7 Total Bilirubin 0.5 AST 30 ALT 12 Alkaline Phosphatase 60 Total Protein 8.1 Albumin 4.8 D Globulin 3.3 Albumin/Globulin Ratio 1.5 Lipase 63 H Ur Collection Type Clean Catch Urine Color Yellow Urine Clarity Turbid A Urine pH 5.5 Ur Specific [place] 1.027 Urine Protein 1+ A Urine Glucose (UA) Negative Urine Ketones 1+ A Urine Blood Negative Urine Nitrite Negative Urine Bilirubin 1+ A Urine Urobilinogen (Auto) 2.0 Ur Leukocyte Esterase Positive Urine RBC 17 H Urine WBC 15 H Ur Squamous Epith Cells 22 H Urine Bacteria None Hyaline Casts 1 04/07/25 04:59 WBC 12.1 H RBC 4.43 Hgb 12.6 Hct 38.2 MCV 86 MCH 28.4 MCHC 33.0 RDW Std Deviation 44.4 Plt Count 243 Neut % (Auto) 65 Lymph % (Auto) 23 [place] % (Auto) 11 Eos % (Auto) 1 Baso % (Auto) 0 Neut # (Auto) 7.8 H Lymph # (Auto) 2.7 [place] # (Auto) 1.4 H Eos # (Auto) 0.1 Baso # (Auto) 0.0 Immature Gran # (Auto) 0.05 H Absolute Nucleated RBC 0.00 Immature Gran % 0 Nucleated RBC % 0 PT 10.7 INR 1.0 APTT 27.6 Sodium 142 Potassium 4.1 D Chloride 105 Carbon Dioxide 23.4 Anion Gap 14 BUN 13 Creatinine 1.0 Estim Creat Clear Calc Not Performed. eGFR > 60 BUN/Creatinine Ratio 13 Glucose 78 D Calculated Osmolality 282 Calcium 9.4 Corrected Calcium Phosphorus 2.9 Magnesium 2.5 Total Bilirubin AST ALT Alkaline Phosphatase Total Protein Albumin Globulin Albumin/Globulin Ratio Lipase Ur Collection Type Urine Color Urine Clarity Urine pH Ur Specific [place] Urine Protein Urine Glucose (UA) Urine Ketones Urine Blood Urine Nitrite Urine Bilirubin Urine Urobilinogen (Auto) Ur Leukocyte Esterase Urine RBC Urine WBC Ur Squamous Epith Cells Urine Bacteria Hyaline Casts Quality Measures Quality Measures VTE prophylaxis (Heparin subcut) Advance care planning discussed with:: other Assessment & Plan Assessment Current Active Medications: Generic Name Dose Route Start Last Admin Trade Name Freq PRN Reason Stop Dose Admin Acetaminophen 650 mg 04/06/25 21:42 Acetaminophen 325 Mg Tablet PO 05/06/25 21:41 Q6H PRN Fever >100.4 Acetaminophen 650 mg 04/06/25 21:42 Acetaminophen 325 Mg Tablet PO 05/06/25 21:41 Q6H PRN PAIN SCALE 1-3 (mild Bisacodyl 10 mg 04/07/25 11:02 Bisacodyl 10 Mg Supp [place] 05/07/25 11:01 QDAY PRN CONSTIPATION Protocol Ciprofloxacin 0 drop 04/07/25 09:00 04/07/25 11:01 Ciprofloxacin Op Nia 0.3% 5 Ml Btl BOTH EYES 05/07/25 08:59 75 drop BID KALI Administration Escitalopram Oxalate 10 mg 04/07/25 20:00 Escitalopram Oxalate 10 Mg Tablet PO 05/07/25 19:59 QDAY KALI Heparin Sodium (Porcine) 5,000 unit 04/06/25 21:45 04/07/25 09:41 Heparin Sod Inj 5000 Unit/Ml Vial SC 04/20/25 21:44 5,000 unit Q12H KALI Administration Hydromorphone HCl 1 mg 04/07/25 13:38 Hydromorphone Inj 2 Mg/Ml Vial IVP 04/11/25 21:41 Q4H PRN PAIN SCALE 4-10(Mod-Sev Sodium Chloride 1,000 mls @ 100 mls/hr 04/06/25 21:50 04/07/25 09:32 Ns IV 05/06/25 21:49 100 mls/hr .Q10H KALI Administration Ceftriaxone Sodium/Dextrose 1 gm in 50 mls @ 100 mls/hr 04/06/25 21:58 04/07/25 09:21 Rocephin/D5w 1gm Iv Premix IV 04/13/25 21:57 50 mls/hr QDAY KALI Administration Ondansetron HCl 4 mg 04/06/25 21:42 Ondansetron Inj 2 Mg/Ml Inj 2 Ml IVP 05/06/25 21:41 Q6H PRN NAUSEA OR VOMITING Protocol Pantoprazole Sodium 40 mg 04/07/25 09:00 04/07/25 09:22 Pantoprazole Inj 40 Mg Vial IVP 05/07/25 08:59 40 mg QDAY KALI Administration Valproic Acid 250 mg 04/07/25 21:00 Valproate Sod Inj 100 Mg/Ml Vial 5 Ml IV 05/07/25 20:59 HS KALI Plan This patient is a 64-year-old female with past medical history of moderate intellectual disability, sleep apnea, microcephaly, bipolar disorder, depression, history of megacolon, constipation, osteopenia, allergic rhinitis, hiatal hernia, thrombocytopenia, chronic dermatitis, bilateral lower extremity edema, hearing difficulty, vision impairment presented to the ED 04/07/25 with caregiver from [facility] [[facility]] with chief complaint of vomiting and abdominal pain. Patient is nonverbal and caregiver Aditi reported that patient has been having grimacing facial expression and pain in the abdomen from last 5 days and intractable vomiting x 1. No bowel movement x [address] was significant for SBO. Admitted for management of SBO. Emergency person to contact: Luiza Frnak [phone] #Severe constipation #Hiatal hernia and megacolon Patient has a history of chronic constipation. Caregiver reported the patient did not had a bowel movement from last 5 days and has been having abdominal pain and vomiting x [address] abdomen was significant for dilated small bowel loops with gastric hernia suspicious for SBO. NG tube unsuccessfully placed after multiple attempts made by the night team. -surgery Dr. Benites consulted, appreciate recommendations--not concerned for major SBO after reviewing images and also no vomiting. Expecting resolution with laxatives. -Doculax 10 mg [place] daily PRN ? IV Benadryl 25 mg given x 1 to relieve anxiety ? IV fluids normal saline at 100 cc/h ? IV Dilaudid 1 mg q4hr as needed for severe pain ? N.p.o. for now ? Aspiration precautions #Mild RAYSHAWN-resolved #Hypercalcemia Likely prerenal due to dehydration. BUN 59, creatinine 1.2. GFR 50 baseline creatinine 0.8 from 04/04/2025. Calcium 10.3 ? IV fluid resuscitation ? Avoid nephrotoxic agents ?Holding patient's Lasix ? Strict AUGUSTA's #Pyuria Patient is nonverbal at baseline. Caregiver did not report that she had any pain during urination. Urinalysis was turbid with proteinuria, ketones, bilirubin, pyuria, squamous epithelial cells and RBCs without bacteria. White count was elevated. No fevers reported. ? Started IV ceftriaxone 1 g daily ? Follow-up on urine culture #Developmental delay #Depression and bipolar disorder #Hearing difficulty and vision impairment Patient is developmentally delayed and is on medications for depression. ? Resume home medications including valproic acid 250 mg at bedtime and citalopram 10 mg at bedtime ?Resumed eyedrops ciprofloxacin twice daily #Bilateral lower extremity edema #Thrombocytopenia Patient is on Lasix 20 mg every day and losartan 25 mg every day ? Holding home medications including Lasix and losartan as blood pressures within normal limits #Osteopenia ?Patient takes Prolia once every 6 months Health maintenance Diet: N.p.o. GI prophylaxis: Protonix 40 mg IV daily DVT prophylaxis: Heparin 5000 IU subcut twice daily CODE STATUS: Full code per caregiver Disposition: med surg, tx severe constipation The patient's management plan was discussed with my attending physician Dr. Hunter. Lisa Starr, PGY-1 Attending Provider Attestation/Addendum I have examined the patient, reviewed labs and imaging findings, discussed the case with the resident(s), and reviewed entered orders. I agree with the plan of care as outlined in this note, with these additional summaries/recommendations: Patient and caregiver seen at bedside. Patient admitted overnight for possible SBO. CT abdomen and pelvis on admission was suspicious for early small bowel obstruction. Per caregiver at bedside patient has not had a bowel movement since 04/02/2025 but does have severe underlying constipation at baseline. Patient is nonverbal and uncooperative with exam. Multiple attempts were made last night to place NG tube including using sedating medications although was unsuccessful. Patient became combative and NG tube was unable to be placed. Unable to obtain small bowel series at this time as patient is uncooperative. General surgery following and we will start patient on Dulcolax suppository and monitor for improvement as findings may be related to severe constipation. General surgery will continue to follow. Continue n.p.o. and IV fluids. Patient was noted to have mild acute kidney injury on admission which is now resolved with IV fluids. Continue to avoid nephrotoxic agents. Leukocytosis present although most likely reactive. Urinalysis is suspicious for possible urinary tract infection although patient is nonverbal and unclear if symptomatic. Nonetheless we will continue with IV Rocephin for now and follow-up urine culture. Continue home antipsychotics once tolerating oral intake. Continue to hold home Lasix for soft blood pressure on admission. We are attempting to contact [facility] to determine patient's medical decision maker. Unclear if the patient is conserved or if patient's sister makes medical decisions. Caregiver updated on the plan and in agreement. Please see residents note for additional details of management. Dr. Elsa MD
[2025-04-07] MEDS: [UNRECOGNIZED DRUG - OTHER] 250 MG IV (22:03)
[2025-04-07] MEDS: LORazepam 2 MG/ML VIAL 1 MG IM (22:49)
[2025-04-08] VITALS (8 sets, daily range): BP systolic 97–133; BP diastolic 45–81; PULSE 72–101; RESP 18–20; TEMP 36.1–37.1; O2SAT 91–97
--- NOTE | 2025-04-08 03:11 | PC.NURSE ---
Dr Cardoza informed of pt pulling out IV. Requested another dose of Ativan prior to attempting to replace line for IV fluids and antibiotics. Per MD, hold off reinserting the IV until morning. We'll reevaluate in the morning if pt still requires antibiotics and fluids.
[2025-04-08 06:02] LABS: Basophils # (Auto) 0.1 Thou/mm3 (0.0-0.2); Basophils % (Auto) 1 % (0-2.5); Eosinophils # (Auto) 0.1 Thou/mm3 (0.0-0.5); Eosinophils % (Auto) 1 % (0-10); Hematocrit 36.9 % (36.0-46.0); Hemoglobin 11.9 g/dL (12.0-16.0); Immature Granulocytes Auto 0.08 Thou/mm3 (0.00-0.00); Lymphocytes # (Auto) 1.9 Thou/mm3 (1.0-4.8); Lymphocytes % (Auto) 18 % (10-50); Mean Corpuscular HGB Conc 32.2 g/dl (31.0-37.0); Mean Corpuscular Hemoglobin 28.8 pg (25.0-35.0); Mean Corpuscular Volume 89 fL (80-100); Monocytes # (Auto) 1.1 Thou/mm3 (0.0-0.8); Monocytes % (Auto) 11 % (0-12); Neutrophils # (Auto) 7.0 Thou/mm3 (1.8-7.7); Neutrophils % (Auto) 69 % (37-80); Nucleated Red Blood Cell # 0.00 Thou/mm3 (0.00-0.00); Nucleated Red Blood Cell % 0 /100 WBC (0); Platelet Count 226 Thou/mm3 (140-440); RDW Standard Deviation 45.9 fL (36.4-46.3); Red Blood Count 4.13 Miln/mm3 (4.00-5.20); White Blood Count 10.1 Thou/mm3 (3.6-11.0)
[2025-04-08 06:23] LABS: Anion Gap 8 (7-16); BUN/Creatinine Ratio 7 Ratio (12-20); Blood Urea Nitrogen 6 mg/dL (9-23); Calcium 8.0 mg/dL (8.3-10.6); Carbon Dioxide 22.6 mMol/L (20.0-31.0); Chloride 114 mMol/L (98-107); Creatinine (Component) 0.9 mg/dL (0.6-1.3); Glucose 75 mg/dL (74-106); Magnesium 2.1 mg/dL (1.6-2.6); Osmolality,Calculated 285 (275-295); Phosphorous 1.6 mg/dL (2.4-5.1); Potassium 4.5 mMol/L (3.4-5.1); Sodium 145 mMol/L (136-145); eGFR > 60 See Note
[2025-04-08] MEDS: CIPROFLOXACIN OP SOL 0.3% 5 ML BTL BOTH EYES ×2 (08:52→20:58)
[2025-04-08] MEDS: HEPARIN SOD INJ 5000 UNIT/ML VIAL SC ×2 (08:53→22:00)
--- NOTE | 2025-04-08 09:11 | PC.NURSE ---
MD Hunter and Matty aware of unsuccessful attempt to start IV access on pt. Pt non compliant and becomes physically agitated.
--- NOTE | 2025-04-08 12:32 | PD.SURPROG ---
Documentation for date of: 04/08/25 Subjective Subjective Narrative: Patient is seen and examined. Care provider is not in the room at this time. She seems a little bit agitated. She was reported to have a bowel movement Exam Vital Signs Temp Pulse Resp BP Pulse Ox O2 Del Method O2 Flow Rate 97.8 F 87 19 126/74 97 Room Air 1 04/08/25 11:59 04/08/25 11:59 04/08/25 11:59 04/08/25 11:59 04/08/25 11:59 04/08/25 08:00 04/08/25 10:37 Constitutional Constitutional: no acute distress Routine Abdominal Exam Comments: Abdomen is soft and not distended Assessment & Plan Assessment Additional comments: Bowel obstruction resolving Plan Continue stool softeners. May advance diet as tolerated. When she is tolerating soft diet she can be discharged
--- NOTE | 2025-04-08 12:53 | PC.SS ---
Addendum entered by Sharla Cabrera 04/08/25 12:56: Pt to return to her faciity once d/c is ready. Pt is a client of the [facility]. Original Note: Per rounding meeting, Attending is requesting rec's from Dr. Molina. When Dr. Molina provides rec's and pt is tolerating soft diet she can be discharged, per attending. No d/c date at this time.
--- NOTE | 2025-04-08 15:34 | PC.SS ---
ASW attempted to complete the initial with the pt but she is non verbal. ASW attempted to call pts Person to Notify, but was only able to leave a voice message. Initial incompleted.
--- NOTE | 2025-04-08 16:40 | PD.RESPRO ---
Documentation for date of: 04/08/25 Subjective Subjective Interval history: Patient examined at bedside, wrist restraints renewed overnight. Caregiver not at bedside during morning rounds. Patient was yelling and very distressed. Per nursing, there was reported bowel movement and IV line was lost due to continuous movements of patient. Multiple attempts made to re insert IV but no success due to combative behavior. Unable to give IV formulations of mediations. Transition to PO and continue antibiotcs and anti seizure medications. Will start on outpatient diet regimen and advance as tolerated. Follow-up urine culture. Labs are looking stable with RAYSHAWN resolved. Exam Vital Signs Temp Pulse Resp BP Pulse Ox O2 Del Method O2 Flow Rate 97.0 F 90 18 97/45 L 96 Room Air 1 04/08/25 16:00 04/08/25 16:04/08/25 16:04/08/25 16:04/08/25 16:04/08/25 16:04/08/25 10:37 Narrative Exam General: Developmentally delayed mildly agitated and not cooperative for examination. bL wrist restrains on. HEENT: right eye remains closed, unable to examine otherwise. Cardiovascular: Normal S1 and S2. Regular rate and rhythm. Respiratory: Lungs are clear to auscultation bilaterally. No wheezing or crackles heard. Abdomen: Soft, Due to limited examination cannot appreciate bowel sounds. Skin: Warm to touch, dry, no rashes noted Musculoskeletal: No gross injuries. Able to move all 4 extremities. No pitting edema Neuro: developmental delay, No apparent focal neuro deficits. Objective Labs 04/09/25 05:10 04/09/25 05:10 Labs: Laboratory Results - last 24 hr 04/08/25 05:31 WBC 10.1 RBC 4.13 Hgb 11.9 L Hct 36.9 MCV 89 MCH 28.8 MCHC 32.2 RDW Std Deviation 45.9 Plt Count 226 Neut % (Auto) 69 Lymph % (Auto) 18 [place] % (Auto) 11 Eos % (Auto) 1 Baso % (Auto) 1 Neut # (Auto) 7.0 Lymph # (Auto) 1.9 [place] # (Auto) 1.1 H Eos # (Auto) 0.1 Baso # (Auto) 0.1 Immature Gran # (Auto) 0.08 H Absolute Nucleated RBC 0.00 Immature Gran % 1 H Nucleated RBC % 0 Sodium 145 Potassium 4.5 Chloride 114 H Carbon Dioxide 22.6 Anion Gap 8 BUN 6 L Creatinine 0.9 Estim Creat Clear Calc Not Performed. eGFR > 60 BUN/Creatinine Ratio 7 L Glucose 75 Calculated Osmolality 285 Calcium 8.0 L Phosphorus 1.6 L Magnesium 2.1 Quality Measures Quality Measures VTE prophylaxis (Heparin subcut) Advance care planning discussed with:: other Assessment & Plan Assessment Current Active Medications: Generic Name Dose Route Start Last Admin Trade Name Freq PRN Reason Stop Dose Admin Acetaminophen 650 mg 04/06/25 21:42 Acetaminophen 325 Mg Tablet PO 05/06/25 21:41 Q6H PRN Fever >100.4 Acetaminophen 650 mg 04/06/25 21:42 Acetaminophen 325 Mg Tablet PO 05/06/25 21:41 Q6H PRN PAIN SCALE 1-3 (mild Bisacodyl 10 mg 04/07/25 11:02 Bisacodyl 10 Mg Supp [place] 05/07/25 11:01 QDAY PRN CONSTIPATION Protocol Ciprofloxacin 0 drop 04/07/25 09:00 04/08/25 08:52 Ciprofloxacin Op Nia 0.3% 5 Ml Btl BOTH EYES 05/07/25 08:59 2 drop BID KALI Administration Docusate Sodium 100 mg 04/08/25 12:45 Docusate Sod 100 Mg Capsule PO 05/08/25 12:44 BID [facility] Protocol Escitalopram Oxalate 10 mg 04/07/25 20:00 04/08/25 07:52 Escitalopram Oxalate 10 Mg Tablet PO 05/07/25 19:59 Not Given QDAY KALI Heparin Sodium (Porcine) 5,000 unit 04/06/25 21:45 04/08/25 08:53 Heparin Sod Inj 5000 Unit/Ml Vial SC 04/20/25 21:44 5,000 unit Q12H KALI Administration Hydromorphone HCl 1 mg 04/07/25 13:38 Hydromorphone Inj 2 Mg/Ml Vial IVP 04/11/25 21:41 Q4H PRN PAIN SCALE 4-10(Mod-Sev Sodium Chloride 1,000 mls @ 100 mls/hr 04/06/25 21:50 04/08/25 09:15 Ns IV 05/06/25 21:49 Not Given .Q10H KALI Ceftriaxone Sodium/Dextrose 1 gm in 50 mls @ 100 mls/hr 04/06/25 21:58 04/08/25 09:14 Rocephin/D5w 1gm Iv Premix IV 04/13/25 21:57 Not Given QDAY KALI Ondansetron HCl 4 mg 04/06/25 21:42 Ondansetron Inj 2 Mg/Ml Inj 2 Ml IVP 05/06/25 21:41 Q6H PRN NAUSEA OR VOMITING Protocol Pantoprazole Sodium 40 mg 04/07/25 09:00 04/08/25 09:15 Pantoprazole Inj 40 Mg Vial IVP 05/07/25 08:59 Not Given QDAY KALI Valproic Acid 250 mg 04/07/25 21:00 04/07/25 22:03 Valproate Sod Inj 100 Mg/Ml Vial 5 Ml IV 05/07/25 20:59 250 mg HS KALI Administration Plan This patient is a 64-year-old female with past medical history of moderate intellectual disability, sleep apnea, microcephaly, bipolar disorder, depression, history of megacolon, constipation, osteopenia, allergic rhinitis, hiatal hernia, thrombocytopenia, chronic dermatitis, bilateral lower extremity edema, hearing difficulty, vision impairment presented to the ED 04/07/25 with caregiver from [facility] [[facility]] with chief complaint of vomiting and abdominal pain. Patient is nonverbal and caregiver Aditi reported that patient has been having grimacing facial expression and pain in the abdomen from last 5 days and intractable vomiting x 1. No bowel movement x [address] was significant for SBO. Admitted for management of SBO. Emergency person to contact: Luiza Marie [phone] #Severe constipation #Hiatal hernia and megacolon Patient has a history of chronic constipation. Caregiver reported the patient did not had a bowel movement from last 5 days and has been having abdominal pain and vomiting x [address] abdomen was significant for dilated small bowel loops with gastric hernia suspicious for SBO. NG tube unsuccessfully placed after multiple attempts made by the night team. -surgery Dr. Benites consulted, appreciate recommendations--not concerned for major SBO after reviewing images and also no vomiting. Expecting resolution with laxatives. -Doculax 10 mg [place] daily PRN ? IV Benadryl 25 mg given x 1 to relieve anxiety ? IV fluids normal saline at 100 cc/h ? IV Dilaudid 1 mg q4hr as needed for severe pain ? N.p.o. for now--check with caregiver on her baseline diet. Start to advance. ? Aspiration precautions #Mild RAYSHAWN-resolved #Hypercalcemia-resolved Likely prerenal due to dehydration. BUN 59, creatinine 1.2. GFR 50 baseline creatinine 0.8 from 04/04/2025. Calcium 10.3 ? IV fluid resuscitation ? Avoid nephrotoxic agents ?Holding patient's Lasix ? Strict [place]'s #Pyuria Patient is nonverbal at baseline. Caregiver did not report that she had any pain during urination. Urinalysis was turbid with proteinuria, ketones, bilirubin, pyuria, squamous epithelial cells and RBCs without bacteria. White count was elevated. No fevers reported. ? Started IV ceftriaxone 1 g daily ? Follow-up on urine culture #Developmental delay #Depression and bipolar disorder #Hearing difficulty and vision impairment Patient is developmentally delayed and is on medications for depression. ? Resume home medications including valproic acid 250 mg at bedtime and citalopram 10 mg at bedtime ?Resumed eyedrops ciprofloxacin twice daily #Bilateral lower extremity edema #Thrombocytopenia Patient is on Lasix 20 mg every day and losartan 25 mg every day ? Holding home medications including Lasix and losartan as blood pressures within normal limits #Osteopenia ?Patient takes Prolia once every 6 months Health maintenance Diet: N.p.o. GI prophylaxis: Protonix 40 mg IV daily DVT prophylaxis: Heparin 5000 IU subcut twice daily CODE STATUS: Full code per caregiver Disposition: med surg, de severe constipation The patient's management plan was discussed with my attending physician Dr. Hunter. Lisa Starr, PGY-1 Attending Provider Attestation/Addendum I have examined the patient, reviewed labs and imaging findings, discussed the case with the resident(s), and reviewed entered orders. I agree with the plan of care as outlined in this note, with these additional summaries/recommendations: Patient seen at bedside. No caregiver present. No acute overnight events. Patient reportedly had 1 bowel movement overnight. Today at bedside she appears slightly agitated. We will reach out to the facility/caregiver for further information on baseline and daily oral intake. We have been unable to place IV access given patient's mental status and we will discuss with patient's conservator. We will advance to clear liquid diet today to see if patient tolerates. Patient admitted for possible SBO. CT abdomen and pelvis on admission was suspicious for early small bowel obstruction. General surgery following and we will continue patient on Dulcolax suppository. General surgery will continue to follow. Patient was noted to have mild acute kidney injury on admission which is now resolved with IV fluids. Continue to avoid nephrotoxic agents. Leukocytosis present although most likely reactive. Urinalysis is suspicious for possible urinary tract infection although patient is nonverbal and unclear if symptomatic. Nonetheless we will continue with IV Rocephin for now and follow-up urine culture. Continue home antipsychotics once tolerating oral intake. Continue to hold home Lasix for soft blood pressure on admission. Patient is a resident at [facility] to determine patient's medical decision maker. Please see residents note for additional details of management. Dr. Elsa MD
[2025-04-08] MEDS: DOCUSATE SOD 100 MG CAPSULE PO (18:26)
[2025-04-08] MEDS: DIVALPROEX SOD EC 125 MG TABEC 250 MG PO (20:56)
[2025-04-08] MEDS: LACTULOSE SYRUP 20 GM/30 ML UDC 10 GM PO (20:57)
--- NOTE | 2025-04-08 22:50 | PC.NURSE ---
MD Escobar notified that patient is agitated trying to climb out of bed and attempting to spit, kick and hit staff. 4 RNs and charge nurse RN had to go in the room to assist. Restraints are off and need to be renewed. said no restraints for now and he will order a medication
--- NOTE | 2025-04-08 22:50 | PC.NURSE ---
MD Escobar notified that patient is agitated trying to climb out of bed and attempting to spit, kick and hit staff. 4 RNs and charge nurse RN had to go in the room to assist. Restraints are off and need to be renewed. also made aware that patient still has no IV as patient is non compliant with insertion and keeping it on. said no restraints for now and he will order a medication
[2025-04-08] MEDS: HALOPERIDOL LACT INJ 5 MG/ML VIAL 2.5 MG IM (23:10)
[2025-04-09] VITALS (8 sets, daily range): BP systolic 120–146; BP diastolic 61–102; PULSE 77–97; RESP 16–95; TEMP 36.2–36.6; O2SAT 91–98; BMI 28.9
--- NOTE | 2025-04-09 03:48 | PC.NURSE ---
Revived phone call from [place] regarding patient hitting and bitting herself. Covering nurse notified hospitalist MD Cardoza. Per MD, will come up and see patient. Charge nurse also made aware.
--- NOTE | 2025-04-09 03:55 | PC.NURSE ---
MD Escobar came to bedside to assess patient as she is agitated, hitting, kicking and trying to get out of bed. He will order 2.5 mg IM Haldol.
[2025-04-09] MEDS: HALOPERIDOL LACT INJ 5 MG/ML VIAL 2.5 MG IM (04:06)
[2025-04-09 06:20] LABS: Basophils # (Auto) 0.1 Thou/mm3 (0.0-0.2); Basophils % (Auto) 1 % (0-2.5); Eosinophils # (Auto) 0.2 Thou/mm3 (0.0-0.5); Eosinophils % (Auto) 3 % (0-10); Hematocrit 36.3 % (36.0-46.0); Hemoglobin 12.0 g/dL (12.0-16.0); Immature Granulocytes Auto 0.09 Thou/mm3 (0.00-0.00); Lymphocytes # (Auto) 2.2 Thou/mm3 (1.0-4.8); Lymphocytes % (Auto) 31 % (10-50); Mean Corpuscular HGB Conc 33.1 g/dl (31.0-37.0); Mean Corpuscular Hemoglobin 28.6 pg (25.0-35.0); Mean Corpuscular Volume 86 fL (80-100); Monocytes # (Auto) 0.9 Thou/mm3 (0.0-0.8); Monocytes % (Auto) 12 % (0-12); Neutrophils # (Auto) 3.8 Thou/mm3 (1.8-7.7); Neutrophils % (Auto) 53 % (37-80); Nucleated Red Blood Cell # 0.00 Thou/mm3 (0.00-0.00); Nucleated Red Blood Cell % 0 /100 WBC (0); Platelet Count 229 Thou/mm3 (140-440); RDW Standard Deviation 44.1 fL (36.4-46.3); Red Blood Count 4.20 Miln/mm3 (4.00-5.20); White Blood Count 7.3 Thou/mm3 (3.6-11.0)
[2025-04-09 06:38] LABS: Anion Gap 8 (7-16); BUN/Creatinine Ratio 9 Ratio (12-20); Blood Urea Nitrogen 6 mg/dL (9-23); Calcium 8.9 mg/dL (8.3-10.6); Carbon Dioxide 24.8 mMol/L (20.0-31.0); Chloride 110 mMol/L (98-107); Creatinine (Component) 0.7 mg/dL (0.6-1.3); Glucose 88 mg/dL (74-106); Magnesium 2.2 mg/dL (1.6-2.6); Osmolality,Calculated 281 (275-295); Phosphorous 1.4 mg/dL (2.4-5.1); Potassium 3.8 mMol/L (3.4-5.1); Sodium 143 mMol/L (136-145); eGFR > 60 See Note
[2025-04-09] MEDS: LACTULOSE SYRUP 20 GM/30 ML UDC 10 GM PO ×2 (08:48→22:13)
[2025-04-09] MEDS: DOCUSATE SOD 100 MG CAPSULE PO (08:48)
[2025-04-09] MEDS: HEPARIN SOD INJ 5000 UNIT/ML VIAL SC ×2 (08:48→22:13)
[2025-04-09] MEDS: NAPH,KPH MBDB 1 PACKET (1.5 GM) PO (08:48)
[2025-04-09] MEDS: ESCITALOPRAM OXALATE 10 MG TABLET PO (08:49)
[2025-04-09] MEDS: CIPROFLOXACIN OP SOL 0.3% 5 ML BTL BOTH EYES ×2 (08:49→22:30)
--- NOTE | 2025-04-09 13:36 | PC.SS ---
Patient is developmentally delayed and resides at the [facility]. She hs 24 hour care at the facility. SS spoke to Luiza Marie at the [facility] who provided brief history. Patient is ambulatory. She does not use any DME. Patient is not conserved. She has a brother and sister who live outside area. They are not involved but get updates from staff. Patient is connected with [facility] and has a caser in of [place] @ [phone]. Luiza states [facility] makes all healthcare decisions. Patient's baseline is she can easily get agitated. She is verbal saying only a few words per staff. Patient ambulates with a helmet for safety reasons. [facility] fisheries manager states she is on Depakote for behaviors. [facility] staff provides transportation. SS inquired if patient needed i.v. antibiotics would they be able to take her back. The [facility] may not be licensed for that in the event that patient does need any i.v.'s. PcP: Dr. Guan @ [facility]. medical decision maker: [facility] @ [phone] d/c plan: return to [facility] transportation: [facility] staff.
--- NOTE | 2025-04-09 15:10 | PC.NURSE ---
Made MD Hunter and maggie aware of [facility] wishes to have a f/u ct or xray performed prior to dc for sbo review. Per MDs will review.
--- NOTE | 2025-04-09 15:31 | PC.SS ---
SS follow up note; Diet being advanced, patient will possibly discharge back to [facility] when medically cleared.
--- NOTE | 2025-04-09 16:14 | PD.RESPRO ---
Documentation for date of: 04/09/25 Subjective Subjective Interval history: Patient examined at bedside, less agitated and combative today. She is tolerating alternative p.o. medications. Per nursing, there was reported bowel movement. She has been tolerating her dysphagia diet and having good bowel movements. Urine culture was negative but continue IV abx for treatment as patient can not verbally express symptoms. Labs are looking stable with RAYSHAWN resolved. Anticipate discharge in next 24 hours if she continues to tolerate her diet. Exam Vital Signs Temp Pulse Resp BP Pulse Ox O2 Del Method O2 Flow Rate 97.4 F 95 18 120/74 92 L Room Air 1 04/09/25 12:00 04/09/25 12:00 04/09/25 12:04/09/25 12:04/09/25 12:04/09/25 12:04/08/25 10:37 Narrative Exam General: Developmentally delayed mildly agitated and not cooperative for examination. HEENT: right eye remains closed, unable to examine otherwise. Cardiovascular: Normal S1 and S2. Regular rate and rhythm. Respiratory: Lungs are clear to auscultation bilaterally. No wheezing or crackles heard. Abdomen: Soft, Due to limited examination cannot appreciate bowel sounds. Skin: Warm to touch, dry, no rashes noted Musculoskeletal: No gross injuries. Able to move all 4 extremities. No pitting edema Neuro: developmental delay, No apparent focal neuro deficits. Objective Labs 04/10/25 11:55 04/10/25 11:55 Labs: Laboratory Results - last 24 hr 04/09/25 05:10 WBC 7.3 RBC 4.20 Hgb 12.0 Hct 36.3 MCV 86 MCH 28.6 MCHC 33.1 RDW Std Deviation 44.1 Plt Count 229 Neut % (Auto) 53 Lymph % (Auto) 31 Sharkey % (Auto) 12 Eos % (Auto) 3 Baso % (Auto) 1 Neut # (Auto) 3.8 Lymph # (Auto) 2.2 Sharkey # (Auto) 0.9 H Eos # (Auto) 0.2 Baso # (Auto) 0.1 Immature Gran # (Auto) 0.09 H Absolute Nucleated RBC 0.00 Immature Gran % 1 H Nucleated RBC % 0 Sodium 143 Potassium 3.8 D Chloride 110 H Carbon Dioxide 24.8 Anion Gap 8 BUN 6 L Creatinine 0.7 Estim Creat Clear Calc Not Performed. eGFR > 60 BUN/Creatinine Ratio 9 L Glucose 88 Calculated Osmolality 281 Calcium 8.9 Phosphorus 1.4 L Magnesium 2.2 Quality Measures Quality Measures VTE prophylaxis (Heparin subcut) Advance care planning discussed with:: other Assessment & Plan Assessment Current Active Medications: Generic Name Dose Route Start Last Admin Trade Name Freq PRN Reason Stop Dose Admin Acetaminophen 650 mg 04/06/25 21:42 Acetaminophen 325 Mg Tablet PO 05/06/25 21:41 Q6H PRN Fever >100.4 Acetaminophen 650 mg 04/06/25 21:42 Acetaminophen 325 Mg Tablet PO 05/06/25 21:41 Q6H PRN PAIN SCALE 1-3 (mild Bisacodyl 10 mg 04/07/25 11:02 Bisacodyl 10 Mg Supp SC 05/07/25 11:01 QDAY PRN CONSTIPATION Protocol Cephalexin HCl 500 mg 04/08/25 21:00 04/09/25 08:48 Cephalexin 250 Mg Capsule PO 04/15/25 20:59 500 mg BID KALI Administration Ciprofloxacin 0 drop 04/07/25 09:00 04/09/25 08:49 Ciprofloxacin Op Nia 0.3% 5 Ml Btl BOTH EYES 05/07/25 08:59 2 drop BID KALI Administration Divalproex Sodium 250 mg 04/08/25 20:00 04/08/25 20:56 Divalproex Sod Ec 125 Mg Tabec PO 05/08/25 19:59 250 mg Q24H KALI Administration Docusate Sodium 100 mg 04/08/25 12:45 04/09/25 08:48 Docusate Sod 100 Mg Capsule PO 05/08/25 12:44 100 mg BID KALI Administration Protocol Escitalopram Oxalate 10 mg 04/07/25 20:00 04/09/25 08:49 Escitalopram Oxalate 10 Mg Tablet PO 05/07/25 19:59 10 mg QDAY KALI Administration Heparin Sodium (Porcine) 5,000 unit 04/06/25 21:45 04/09/25 08:48 Heparin Sod Inj 5000 Unit/Ml Vial SC 04/20/25 21:44 5,000 unit Q12H KALI Administration Hydromorphone HCl 1 mg 04/07/25 13:38 Hydromorphone Inj 2 Mg/Ml Vial IVP 04/11/25 21:41 Q4H PRN PAIN SCALE 4-10(Mod-Sev Sodium Chloride 1,000 mls @ 100 mls/hr 04/06/25 21:50 04/08/25 09:15 Ns IV 05/06/25 21:49 Not Given .Q10H KALI Lactulose 10 gm 04/08/25 21:00 04/09/25 08:48 Lactulose Syrup 20 Gm/30 Ml Udc PO 05/08/25 20:59 10 gm BID KALI Administration Protocol Lorazepam 1 mg 04/08/25 17:33 Lorazepam 0.5 Mg Tablet PO 04/13/25 17:32 X1 PRN AGITATION (MODERATE) Ondansetron HCl 4 mg 04/06/25 21:42 Ondansetron Inj 2 Mg/Ml Inj 2 Ml IVP 05/06/25 21:41 Q6H PRN NAUSEA OR VOMITING Protocol Pantoprazole Sodium 40 mg 04/07/25 09:00 04/09/25 07:45 Pantoprazole Inj 40 Mg Vial IVP 05/07/25 08:59 Not Given QDAY KALI Plan This patient is a 64-year-old female with past medical history of moderate intellectual disability, sleep apnea, microcephaly, bipolar disorder, depression, history of megacolon, constipation, osteopenia, allergic rhinitis, hiatal hernia, thrombocytopenia, chronic dermatitis, bilateral lower extremity edema, hearing difficulty, vision impairment presented to the ED 04/07/25 with caregiver from [facility] [[facility]] with chief complaint of vomiting and abdominal pain. Patient is nonverbal and caregiver Aditi reported that patient has been having grimacing facial expression and pain in the abdomen from last 5 days and intractable vomiting x 1. No bowel movement x [address] was significant for SBO. Admitted for management of SBO. Emergency person to contact: Luiza Marie [phone] #Severe constipation-improving #Hiatal hernia and megacolon Patient has a history of chronic constipation. Caregiver reported the patient did not had a bowel movement from last 5 days and has been having abdominal pain and vomiting x [address] abdomen was significant for dilated small bowel loops with gastric hernia suspicious for SBO. NG tube unsuccessfully placed after multiple attempts made by the night team. -surgery Dr. Benites consulted, appreciate recommendations--not concerned for major SBO after reviewing images and also no vomiting. Expecting resolution with laxatives. -Doculax 10 mg SC daily PRN ? IV Benadryl 25 mg given x 1 to relieve anxiety ? IV Dilaudid 1 mg q4hr as needed for severe pain ? Continue to advance diet. Per caregiver she is on a dysphagia diet with chopped food ? Aspiration precautions #Pyuria Patient is nonverbal at baseline. Caregiver did not report that she had any pain during urination. Urinalysis was turbid with proteinuria, ketones, bilirubin, pyuria, squamous epithelial cells and RBCs without bacteria. White count was elevated. No fevers reported. ? Started IV ceftriaxone 1 g daily ? urine culture negative, continue IV abx for treatment as patient can not verbally express symptoms. #Developmental delay #Depression and bipolar disorder #Hearing difficulty and vision impairment Patient is developmentally delayed and is on medications for depression. ? Resume home medications including valproic acid 250 mg at bedtime and citalopram 10 mg at bedtime ?Resumed eyedrops ciprofloxacin twice daily #Bilateral lower extremity edema #Thrombocytopenia Patient is on Lasix 20 mg every day and losartan 25 mg every day ? Holding home medications including Lasix and losartan as blood pressures within normal limits #Osteopenia ?Patient takes Prolia once every 6 months #Mild RAYSHAWN-resolved #Hypercalcemia-resolved Health maintenance Diet:chopped dysphagia, advance as tolerated GI prophylaxis: Protonix 40 mg IV daily DVT prophylaxis: Heparin 5000 IU subcut twice daily CODE STATUS: Full code per caregiver Disposition: med surg, tx severe constipation The patient's management plan was discussed with my attending physician Dr. Hunter. Lisa Starr, PGY-1 Attending Provider Attestation/Addendum I have examined the patient, reviewed labs and imaging findings, discussed the case with the resident(s), and reviewed entered orders. I agree with the plan of care as outlined in this note, with these additional summaries/recommendations: Patient and caregiver seen at bedside. No acute overnight events. Patient had 1 small bowel movement overnight. Per cargo supervisor at bedside patient is able to feed herself. We will advance diet to dysphagia 3 today and monitor how she tolerates. If patient tolerates diet and continues to have bowel movements then can likely be discharged in the next 24 to 48 hours. Patient admitted for possible SBO versus severe constipation. We were unable to place NG tube secondary to agitation or obtain small bowel series as patient was noncompliant. At this point since patient is having bowel movements we will continue to monitor without reattempting imaging. On admission CT abdomen and pelvis was suspicious for early small bowel obstruction. General surgery following and we will continue patient on Dulcolax suppository. General surgery will continue to follow. Patient was noted to have mild acute kidney injury on admission which is now resolved with IV fluids. Continue to avoid nephrotoxic agents. Leukocytosis resolved. Urinalysis is suspicious for possible urinary tract infection although patient is nonverbal and unclear if symptomatic. Follow-up urine culture.. Continue home antipsychotics once tolerating oral intake. Continue to hold home Lasix for soft blood pressure on admission. Patient is a resident at [facility]. Please see residents note for additional details of management. Dr. Elsa MD
[2025-04-09] MEDS: DIVALPROEX SOD EC 125 MG TABEC 250 MG PO (22:13)
[2025-04-10 04:00] VITALS: BP 95/79; PULSE 93; RESP 18; TEMP 36.2; O2SAT 97
[2025-04-10 07:41] VITALS: PULSE 73; RESP 18; RESP 95
[2025-04-10 08:00] VITALS: BP 130/62
[2025-04-10] MEDS: HEPARIN SOD INJ 5000 UNIT/ML VIAL SC (09:03)
[2025-04-10] MEDS: LACTULOSE SYRUP 20 GM/30 ML UDC 10 GM PO (09:03)
[2025-04-10] MEDS: DOCUSATE SOD 100 MG CAPSULE PO (09:04)
[2025-04-10] MEDS: ESCITALOPRAM OXALATE 10 MG TABLET PO (09:04)
[2025-04-10] MEDS: CIPROFLOXACIN OP SOL 0.3% 5 ML BTL BOTH EYES (09:04)
[2025-04-10 12:00] VITALS: BP 132/68; RESP 17; TEMP 36.8
--- NOTE | 2025-04-10 12:04 | PD.SURPROG ---
Documentation for date of: 04/10/25 Subjective Subjective Narrative: Patient is seen and examined. She is resting comfortably. According to nurse patient has been tolerating diet and having multiple bowel movements Exam Vital Signs Temp Pulse Resp BP Pulse Ox O2 Del Method O2 Flow Rate 97.1 F 73 18 130/62 97 Room Air 1 04/10/25 04:00 04/10/25 07:41 04/10/25 07:41 04/10/25 08:00 04/10/25 04:00 04/10/25 04:00 04/08/25 10:37 Constitutional Constitutional: no acute distress Routine Abdominal Exam Comments: Abdomen is soft and nondistended Assessment & Plan Assessment Additional comments: Small bowel obstruction resolved Plan May discharge
[2025-04-10 12:26] LABS: Basophils # (Auto) 0.1 Thou/mm3 (0.0-0.2); Basophils % (Auto) 1 % (0-2.5); Eosinophils # (Auto) 0.2 Thou/mm3 (0.0-0.5); Eosinophils % (Auto) 2 % (0-10); Hematocrit 40.1 % (36.0-46.0); Hemoglobin 13.3 g/dL (12.0-16.0); Immature Granulocytes Auto 0.12 Thou/mm3 (0.00-0.00); Lymphocytes # (Auto) 1.6 Thou/mm3 (1.0-4.8); Lymphocytes % (Auto) 24 % (10-50); Mean Corpuscular HGB Conc 33.2 g/dl (31.0-37.0); Mean Corpuscular Hemoglobin 29.0 pg (25.0-35.0); Mean Corpuscular Volume 87 fL (80-100); Monocytes # (Auto) 0.6 Thou/mm3 (0.0-0.8); Monocytes % (Auto) 8 % (0-12); Neutrophils # (Auto) 4.2 Thou/mm3 (1.8-7.7); Neutrophils % (Auto) 63 % (37-80); Nucleated Red Blood Cell # 0.00 Thou/mm3 (0.00-0.00); Nucleated Red Blood Cell % 0 /100 WBC (0); Platelet Count 239 Thou/mm3 (140-440); RDW Standard Deviation 44.7 fL (36.4-46.3); Red Blood Count 4.59 Miln/mm3 (4.00-5.20); White Blood Count 6.7 Thou/mm3 (3.6-11.0)
[2025-04-10 13:02] LABS: Alanine Aminotransferase 15 U/L (10-49); Albumin, Serum 3.9 gm/dL (3.4-4.8); Albumin/Globulin Ratio 1.4 (1.2-2.2); Alkaline Phosphatase 49 U/L (46-116); Anion Gap 7 (7-16); Aspartate Amino Transferase 39 U/L (0-34); BUN/Creatinine Ratio 9 Ratio (12-20); Bilirubin,Total 0.4 mg/dL (0.3-1.2); Blood Urea Nitrogen 7 mg/dL (9-23); Calcium 8.7 mg/dL (8.3-10.6); Calcium (Corrected) 8.8 mg/dL (8.5-10.1); Carbon Dioxide 27.3 mMol/L (20.0-31.0); Chloride 112 mMol/L (98-107); Creatinine (Component) 0.8 mg/dL (0.6-1.3); Estimated Creatinine Clearance 49.1 mL/min (>60); Globulin 2.7 gm/dL (2.3-3.5); Glucose 143 mg/dL (74-106); Osmolality,Calculated 290 (275-295); Potassium 4.4 mMol/L (3.4-5.1); Sodium 146 mMol/L (136-145); Total Protein 6.6 gm/dL (5.7-8.2); eGFR > 60 See Note
--- NOTE | 2025-04-10 15:43 | ESDS_ITS ---
<Statement entered by Mark Sosa MD - 04/12/25 13:56> I have discussed and was present for the essential components of the history, physical examination, diagnosis, and treatment plan with the resident. I agree with the patient's care as documented by the resident and amended herein by me. Mark Sosa MD FACP. Planned Discharge Date 04/10/25 DS: Providers Provider Date of admission: 04/06/25 21:42 Primary care physician: Kamari Guan MD Admitting Provider: Edy Skinner MD Attending Provider on Admission: Edy Skinner MD Consults: 04/06/25 22:00 Consult to General Surgery Stat Comment: Consulting Provider: Shelia Benites 04/07/25 03:13 Health Equity Referral - Knowledge Deficit Routine Comment: Positive screening for knowledge deficit needs. Attending Provider on DC: Dr. Adonay Sosa Discharging Provider: RESIDENT Jose Anticipated date of discharge: 04/10/25 DS: Diagnosis Problem List Completed Was Problem List Reviewed/Reconciled?: Yes Hospital Course Hospital Course Hospital course: Plan: Take all home medications as prescribed Follow up with PCP as outpatient In case of emergency or worsening sign/symptoms call 911 or come back to the ED This patient is a 64-year-old female with past medical history of moderate intellectual disability, sleep apnea, microcephaly, bipolar disorder, depression, history of megacolon, constipation, osteopenia, allergic rhinitis, hiatal hernia, thrombocytopenia, chronic dermatitis, bilateral lower extremity edema, hearing difficulty, vision impairment presented to the ED with caregiver from [facility] [[facility]] with chief complaint of vomiting and abdominal pain. Patient is nonverbal and caregiver Aditi reported on admission that patient has been having grimacing facial expression and pain in the abdomen from last 5 days and intractable vomiting x 1 and no bowel movement x [address] was significant for SBO. Admitted for management of SBO. NG tube unsuccessfully placed after multiple attempts made by the night team. Regarding the severe constipation, Surgery Dr. Benites consulted and was not concerned for major SBO after reviewing images and after vomiting resolved and with laxative helping to improve constipation. Patient was able to tolerate her dysphagia diet. Patient was found to have pyruia and was given ceftriaxone. Patients lasix 20 mg q daily and losartan 25 mg q daily were held as blood pressures within normal limits. Patient was resumed on her home medication of valproic acid 250 mg at bedtime and citalopram 10 mg at bedtime for depression and bipolar disorder along with ciprofloxacin eye drops twice daily for her hearing difficulty and vision impairment. Regarding her osteopenia, patient takes Prolia q 6 months. Her mild RAYSHAWN and Hypercalcemia resolved. #Severe constipation-improving #Hiatal hernia and megacolon #Pyuria #Developmental delay #Depression and bipolar disorder #Hearing difficulty and vision impairment #Bilateral lower extremity edema #Thrombocytopenia #Osteopenia Duc Pettit MD PGY-1 Patient seen and examined at bedside, no acute overnight events. I discussed and supervised with the graduate internship physician who took care of this patient. I personally saw and examined the patient. I agree with most of the assessment and plan. Plan of care discussed with attending Dr. Sosa. Giovanny Bennett MD PGY-2 Time Spent with Patient Time attestation: Total time spent providing and/or coordinating discharge services: Time spent: Greater than 30 minutes Exam Vital Signs Temp Pulse Resp BP Pulse Ox O2 Del Method O2 Flow Rate 98.3 F 73 17 132/68 H 97 Room Air 1 04/10/25 12:00 04/10/25 07:41 04/10/25 12:00 04/10/25 12:00 04/10/25 04:00 04/10/25 04:00 04/08/25 10:37 Narrative Exam General: Developmentally delayed mildly agitated and not cooperative for examination. HEENT: right eye remains closed, unable to examine otherwise. Cardiovascular: Normal S1 and S2. Regular rate and rhythm. Respiratory: Lungs are clear to auscultation bilaterally. No wheezing or crackles heard. Abdomen: Soft, Due to limited examination cannot appreciate bowel sounds. Skin: Warm to touch, dry, no rashes noted Musculoskeletal: No gross injuries. Able to move all 4 extremities. No pitting edema Neuro: developmental delay, No apparent focal neuro deficits. Discharge Plan Plan Patient Disposition: HOME (Self Care) Care Plan Goals: Take all home medications as prescribed Follow up with PCP as outpatient In case of emergency or worsening sign/symptoms call 911 or come back to the ED Prescriptions/Referrals Prescriptions/Med Rec: New lactulose 10 gram/15 mL Solution 10 g PO BID PRN (Reason: constipation) Qty: 1200 0RF valproic acid 250 mg capsule 250 mg PO QPM Qty: 90 0RF Continued polyethylene glycol 3350 [Miralax] 255 GM powder 17 g PO HS Qty: 0 Patient Comments: Mix with 8oz of water. Hold after 2 consecutive loose stools within 24 hours.(for constipation). Rx Instructions: at 20:00pm sennosides [senna] 8.6 mg Tablet 2 tab PO HS Patient Comments: with 8 oz of water. Hold after 2 consecutive loose stools within 24 hrs. Rx Instructions: at 20:00pm acetaminophen [Tylenol] 325 mg Tablet 650 mg PO Q6H PRN (Reason: Pain and/or T>100.5) artificial tears(hypromellose) 0.3 % Drops 1 drp ophthalmic (eye) TID Rx Instructions: RIGHT EYE. calcium carbonate-vitamin D3 600 mg(1,500mg) -400 unit Tablet 1 tab PO BID Rx Instructions: 1400 AND 1999. omeprazole 20 mg Capsule,Delayed Release(Dr/Ec) 20 mg PO HS Rx Instructions: at 20:00pm losartan 25 mg tablet 25 mg PO HS furosemide 20 mg tablet 20 mg PO QDAY ciprofloxacin HCl 0.3 % drops 1 drp OPHTHALMIC (EYE) BID Patient Comments: 1 drop to each eye escitalopram oxalate 10 mg tablet 10 mg PO HS Prolia 60 mg/mL syringe 60 mg SUBCUT .q6 mon Rx Instructions: Q 6 months (February and Aug) multivitamin-iron (hematinic) Tablet 1 tab PO HS Discontinued diphenhydramine HCl 50 mg Capsule 50 mg PO HS melatonin 10 mg Tablet 10 mg PO HS quetiapine 25 mg tablet 25 mg PO QDAY Rx Instructions: Give at 1400. quetiapine 100 mg tablet 100 mg PO QDAY Rx Instructions: Give at 1400. valproic acid (as sodium salt) 250 mg/5 mL solution 1,500 mg PO HS valproic acid (as sodium salt) 250 mg/5 mL solution 500 mg PO QAM quetiapine 200 mg tablet extended release 24 hr 200 mg PO HS [id number] Tablet 1 tab PO QDAY doxycycline hyclate 100 mg Tablet 100 mg PO BID Qty: 5 0RF amoxicillin-pot clavulanate 875-125 mg Tablet 1 tab PO BID Qty: 5 0RF divalproex 250 mg tablet,delayed release (DR/EC) 250 mg PO HS Rx Instructions: at 20:00pm Referrals: Kamari Guan MD [Primary Care Provider] - Patient/Caregiver Discharge Instructions Other Discharge Activity Instructions:: Resume previous medications. Follow up with PCP in 1-2 weeks. Education Materials: Small Bowel Obstruction, ED Constipation (Adult) Print Language: Togolese Stand Alone Forms: Zandra Award Info., Patient Portal Info Letter, Work/Release Restrictions Discharge Order Discharge Orders: Discharge (Routine); Ordered 04/10/25 Ordered By: Nawaf Deras Quality Discharge Quality Measures VTE prophylaxis
[2025-04-10] MEDS: ACETAMINOPHEN 325 MG TABLET 650 MG PO (15:51)
[2025-04-10 16:00] VITALS: BP 127/72; RESP 16; TEMP 36.3
== END 2025-04-10 16:14 | disposition home or self-care (01) | DRG 389 ==
LOC: SERX 15:21 → SERHOLD 22:00 → S3SX 23:19
PROVIDERS: Nurse Practitioner Family; Student in an Organized Health Care Education/Training Program; Admitting Provider Internal Medicine; Emergency Provider Emergency Medicine; PCP Family Medicine; Visit Provider Internal Medicine
DX: K56.609 Unspecified intestinal obstruction, unspecified as to partial versus complete obstruction (principal); K59.39 Other megacolon; N17.9 Acute kidney failure, unspecified; N39.0 Urinary tract infection, site not specified; F31.9 Bipolar disorder, unspecified; F71 Moderate intellectual disabilities; H54.7 Unspecified visual loss; M85.80 Other specified disorders of bone density and structure, unspecified site; G47.30 Sleep apnea, unspecified; J30.9 Allergic rhinitis, unspecified; K45.8 Other specified abdominal hernia without obstruction or gangrene; E83.52 Hypercalcemia; I10 Essential (primary) hypertension; Q02 Microcephaly; K59.09 Other constipation; R62.50 Unspecified lack of expected normal physiological development in childhood; E86.0 Dehydration; D69.6 Thrombocytopenia, unspecified; R80.9 Proteinuria, unspecified; R60.0 Localized edema; F41.9 Anxiety disorder, unspecified; K44.9 Diaphragmatic hernia without obstruction or gangrene; Z78.1 Physical restraint status; Z79.899 Other long term (current) drug therapy; Z91.199 Patient's noncompliance with other medical treatment and regimen due to unspecified reason
CPT/HCPCS: 36415; 74176; 80048; 80053; 81001; 83690; 83735; 84100; 85025; 85610; 85730; 87081; 87086; 96361; 96365; 96372; 96375; 99285; J0696; J1200; J1630; J1644; J2060; J2405; J2470; J3475; J7030; A9270

== ENCOUNTER → 2025-06-19 | Outpatient (CLI) | payer MEDICARE, MEDICAID, SELFPAY ==
[2025-06-19 16:59] LABS: Basophils # (Auto) 0.1 Thou/mm3 (0.0-0.2); Basophils % (Auto) 1 % (0-2.5); Eosinophils # (Auto) 0.4 Thou/mm3 (0.0-0.5); Eosinophils % (Auto) 5 % (0-10); Hematocrit 40.5 % (36.0-46.0); Hemoglobin 12.8 g/dL (12.0-16.0); Immature Granulocytes Auto 0.02 Thou/mm3 (0.00-0.00); Lymphocytes # (Auto) 3.5 Thou/mm3 (1.0-4.8); Lymphocytes % (Auto) 42 % (10-50); Mean Corpuscular HGB Conc 31.6 g/dl (31.0-37.0); Mean Corpuscular Hemoglobin 28.2 pg (25.0-35.0); Mean Corpuscular Volume 89 fL (80-100); Monocytes # (Auto) 0.9 Thou/mm3 (0.0-0.8); Monocytes % (Auto) 11 % (0-12); Neutrophils # (Auto) 3.4 Thou/mm3 (1.8-7.7); Neutrophils % (Auto) 41 % (37-80); Nucleated Red Blood Cell # 0.00 Thou/mm3 (0.00-0.00); Nucleated Red Blood Cell % 0 /100 WBC (0); Platelet Count 190 Thou/mm3 (140-440); RDW Standard Deviation 45.9 fL (36.4-46.3); Red Blood Count 4.54 Miln/mm3 (4.00-5.20); White Blood Count 8.2 Thou/mm3 (3.6-11.0)
[2025-06-19 17:17] LABS: Alanine Aminotransferase 8 U/L (10-49); Albumin, Serum 3.7 gm/dL (3.4-4.8); Albumin/Globulin Ratio 1.4 (1.2-2.2); Alkaline Phosphatase 46 U/L (46-116); Anion Gap 10 (7-16); Aspartate Amino Transferase 20 U/L (0-34); BUN/Creatinine Ratio 22 Ratio (12-20); Bilirubin,Total 0.6 mg/dL (0.3-1.2); Blood Urea Nitrogen 22 mg/dL (9-23); Calcium 9.8 mg/dL (8.3-10.6); Calcium (Corrected) 10.0 mg/dL (8.5-10.1); Carbon Dioxide 30.1 mMol/L (20.0-31.0); Cardiac Risk Estimate 4.2 RATIO (3.7-5.6); Chloride 104 mMol/L (98-107); Cholesterol 187 mg/dL (132-200); Creatinine (Component) 1.0 mg/dL (0.6-1.3); Globulin 2.6 gm/dL (2.3-3.5); Glucose 70 mg/dL (74-106); HDL Cholesterol 45 mg/dL (40-60); LDL Cholesterol,Calculated 109 mg/dL (0-130); Osmolality,Calculated 288 (275-295); Potassium 4.9 mMol/L (3.4-5.1); Sodium 144 mMol/L (136-145); Thyroid Stimulating Hormone 2.16 uIU/mL (0.55-4.78); Total Protein 6.3 gm/dL (5.7-8.2); Triglycerides 164 mg/dL (30-150); eGFR > 60 See Note
[2025-06-25 06:35] LABS: Valporic Acid (Depak)* 36.4 mg/L (50.0-100.0)
== END | disposition home or self-care (01) ==
LOC: SLDO 14:51
PROVIDERS: PCP Family Medicine; Referring Provider Family Medicine; Visit Provider Family Medicine
DX: F79 Unspecified intellectual disabilities (principal)
CPT/HCPCS: 36415; 80053; 80061; 80164; 84443; 85025